=== PATIENT | female | born 1955 | race Caucasian/White ===

== ENCOUNTER → 2016-10-29 | Outpatient (CLI) | payer BC ==
[2016-10-29 17:14] LABS: HEMATOCRIT 42.4 % (37-47); MEAN CELL VOLUME 92.8 fL (80-100); MEAN CORPUSCULAR HEMOGLOBIN 31.1 pg (25-34); MEAN CORPUSCULAR HGB CONC 33.5 g/dl (32-36); MEAN PLATELET VOLUME 11.4 fL (7.4-10.4); PLATELET COUNT 218 K/uL (130-400); RED BLOOD COUNT 4.57 M/uL (4.2-5.4)
[2016-10-29 17:26] LABS: ALT/SGPT 40 U/L (12-78); AST/SGOT 20 U/L (15-37); BLOOD UREA NITROGEN 30 mg/dl (7-18); BUN/CREATININE RATIO 30.4 (10-20); CALCIUM 8.9 mg/dl (8.5-10.1); CARBON DIOXIDE 24 mmol/L (21-32); CHLORIDE 108 mmol/L (98-107); CHOLESTEROL 170 mg/dl (0-200); GLUCOSE 100 mg/dl (70-99); POTASSIUM 3.8 mmol/L (3.5-5.1); SODIUM 143 mmol/L (136-145)
[2016-10-29 17:37] LABS: ALB/GLOB RATIO 1.3 (0.9-2); ALKALINE PHOSPHATASE 135 U/L (45-117); CHOLESTEROL/HDL RATIO 2.7; HDL CHOLESTEROL 64 mg/dl; LDL CHOLESTEROL CALCULATED 88 mg/dl; TRIGLYCERIDES 88 mg/dl (0-150); VERY LOW DENSITY LIPOPROT CALC 18 mg/dl
[2016-10-29 19:07] LABS: ESTIMATED AVERAGE GLUCOSE 126 mg/dl; HA1C FLAG Normal (Normal)
== END | disposition home or self-care (01) ==
LOC: C.LABBFT 10:18
PROVIDERS: ATTEND Internal Medicine
DX: R73.01 Impaired fasting glucose (principal); E78.00 Pure hypercholesterolemia, unspecified

== ENCOUNTER 2021-03-31 23:55 | Inpatient (IN) ==
[2021-04-01] MEDS ORDERED: SODIUM CHLORIDE 0.9% 1000ML 1,000 ML IV ONE ×4 (00:19→02:33)
[2021-04-01] MEDS ORDERED: ACETAMINOPHEN 1,000 MG/100 ML VIAL IV STA (00:19)
--- NOTE | 2021-04-01 00:22 | Emergency Department Note ---
Impression & Plan Septic shock, Lactic acidosis, Acute renal failure ED Provider Note Name: ALLEN LAUREN Age: 65 Sex: F Arrives Via: Walk-In Informant: Patient ED Provider: Wiley Clark MD Chief Complaint: Shortness of breath Impression: Septic Shock Lactic Acidosis Acute Renal Failure Medical Decision Makin yr old female with history GERD & HLP, otherwise healthy without recent issues arrives with 3 to 4 days of feeling ill, primarily with feeling short of breath and weak. On arrival evaluated immediately on nursing concern and septic alert called. She is dehydrated, tachy, febrile, and quite ill appearing. Lungs with mild crackles throughout though otherwise no wheezing. No evidence meningitis and her abdomen is soft/non-tender. Immediately 2 IVs ordered, 2 L NSS bolus, and broad labs obtained. CXR without clear findings of infection. Labs returning quite concerning with neutropenia, thrombocytopenia, significantly elevated lactate/procal/dimer, elevated Cr. She is clearly quite septic and with lactate as high this is consistent with shock (hypotension much later in stay further confirms). Broad abx ordered with 20mg/kg vanco in s etting of renal failure. Further IV fluids ordered as well as tolerated 2 L very well, and is in renal failure. Seems unlikely fulminant DIC given fibrinogen actually a bit elevated at this time. Dimer 19k likely septic shock related and PE less likely given many other lab findings and exam leading to sepsis as primary diagnosis. With tenuous kidneys I do not feel that given IV contrast would be in patient's interest. Empiric full anticoagulation not advised as I do not feel this is PE nor ACS (again, trop likely sepsis related). Unclear etiology of sepsis, though with respiratory complaint felt that primary tx of this indicated. Second Lactate did come back improved yet still elevated (done after 2nd L completed), thus requested again nursing start already ordered 3rd L NSS. Patient did have some hypotension several hours after arrival at which point further IV fluids started. Patient however with no complaints nor discomfort. BP still trending down even after 4th L IV fluids, thus despite no symptoms, I did start Levophed with improvement. Hospitalist aware and will admit to ICU for management/monitoring. Eventually got UA after posadas placed by Nursing which reveals concern for UTI, abx already should cover this. Hospitalist will get CT c/a/p while she is en route to floor which given benign abdomen on several exams and breathing much better seems reasonable. My empiric read of CT concerning for obstructing proximal ureteral stone. In setting of dirty urine and septic shock concern for infected stone high, despite patient reiterating she had no abdominal nor flank pain throughout stay. I contacted hospitalist to make them aware of my concerns. Given the patients BMI >30, IBW was used to calculate the 30ml/kg fluid bolus, and then received further fluids given repetitive examinations. Prior Medical Record and Triage/Nursing Notes reviewed by Me Additional history obtained from chart/ Differentials:Viral syndrome, otitis, pharyngitis, pneumonia, influenza, meningitis, urinary tract infection, sepsis, bacteremia, as well as other pathologies. Vital Signs: reviewed and remarkable for febrile, tachy Interventions: saline lock, NSS bolus 2 L IV, 1L IV, 1L IV, zosyn IV, vanco IV, tylenol iv Labs:Reviewed and remarkable for extensive abnormalities. Neutropenia/thrombocytopenia. Elevated lactate, procal, dimer, cr. Imaging:X ray results are stated below per my interpretation: Chest: 1 view: No infiltrate, no effusion, normal cardiac border. EKG:Per My Interpretation: Indication Sepsis: Sinus tach 11 bpm, qtc 449. No Ectopy. No Ischemia. Compared to EKG 08/16/11, no significant changes other than rate increased Cardiac/Tele Monitoring: Cardiac Monitoring: An Order was placed for continuous cardiac monitoring. The monitor shows a rate of 110 with a sinus tachy rhythm. Consults:Dr Jesus BRITT Hospitalist Plan: Disposition:Hospitalization. Condition: Fair History of Present Illness:65 yr old female arrives for evaluation of shortness of breath. Patient notes rapidly worsening cough and shortness of breath over the last few days. Started with mild cough which has progressed. Associated productive cough, weakness, fatigue, and fevers. Notes some mild sciatic pain w ithout weakness nor loss bowel/bladder control. She denies significant headache, neck pain, abdominal pain, back pain, rashes, nor other symptoms. Notes some mild swelling in feet the last few weeks as well. No medications prior to arrival. Exertion makes worse, rest makes better. No history of respiratory issues. Remote history smoking. No history PE/DVT nor recent travel. Patient received both covid vaccine doses > than 1 month since last vaccine. ROS: See above HPI for pertinent positives & negatives. A total of 10 systems reviewed and were otherwise negative. Past Medical History:GERD, HLP Past Surgical History:Hysterectomy Family History:Unknown to patient Social History:Lives with , retired, quit smoking 20 yrs ago Home Medications:ASA 81mg daily, Atorvastatin 20mg daily Allergies:Hydrocodone Vitals:Blood Pressure: 152/70, Pulse 130, RR 30, T 38.1C, O2 94% on RA Physical Exam: GENERAL: Patient is ill/septic appearing and in moderate distress. Dehydrated EYES: No scleral icterus, unremarkable pupils. ENT: Mucous membranes dry+++, no nasal congestion. NECK: No masses appreciated, nomeningismus, trachea is midline. RESPIRATORY: Significant dyspnea/tachypnea with mild crackles throughout without significant wheeze appreciated on arrival. CARDIOVASCULAR: tachy.No murmurs, rubs, gallops appreciated. GASTROINTESTINAL: Abdomen soft, non-tender, no peritonitis.Bowel sounds positive.No masses appreciated. BACK: No midline tenderness, no CVA tenderness EXTREMITIES: Normal motion all extremities, no cyanosis, no edema. NEUROLOGIC: Alert and oriented, no acute motor or sensory deficits, no focal weakness, cranial nerves grossly intact. SKIN: No rash, no jaundice, no diaphoresis. PSYCH: Appropriate GCS: 15 ED Course: Times/Reassessments: many times throughout, each time patient stating she feels much better and no distress. Critical Care: I have personally spent 35 minutes of critical care time in the direct management of this patient. Acute Septic Shock. This was a life/limb threatening event. This 35 minutes is in excess of all separately billable procedures. Wiley Clark MD Past Med/Surg History Medical History Acute bronchitis with bronchospasm Biliary dyskinesia Gastroesophageal reflux disease Hypercholesteremia Hyperlipidemia Impaired fasting glucose Kidney stones Surgical History History of cholecystectomy History of esophagogastroduodenoscopy (EGD) History of hysterectomy Hx of cataract surgery Family History Mother Diabetes Sister Cancer Denies family history of Ovarian cancer Prostate cancer Myocardial infarction Breast cancer Colorectal cancer Social History Smoking Status: Former smoker Tobacco Type: Cigarettes Age Started Using Tobacco: 14; Age Quit Using Tobacco: 45; packs per day: 0.75; Smoking End Date: 20 yrs ago; Second Hand Exposure: No; Hx Alcohol Use: Yes Alcohol type: other Alcohol Intake Frequency: 2-4 x/Month Hx Substance Use: No Preferred Language: [place] Leonean Communication Ability: Effective Visual Impairment: No Limitations Hearing Ability: Hard of Hearing Front Desk Associate Required: No Beliefs That Will Affect Care: None marital status: Current Living Situation: Spouse current occupational status: retired 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 [employer] Other Information That Helps Us Care for You: No Feels Safe at Home: Yes Safety Concerns: Feels Safe At This Time Childhood Exposure to Second-Hand Smoke: No Dental Care, Regularly: No Physical Activity Frequency: Does not Exercise Seatbelt Use: always Sunscreen Use: No Assistive Devices: Denture - Upper and Denture - Lower Allergies Allergies Allergy/AdvReac Type Severity Reaction Status Date / Time hydrocodone Allergy Unknown Rash Verified 04/01/21 00:42 Home Meds Home Medications Medication Instructions Recorded Confirmed aspirin 81 mg PO DAILY 05/25/19 04/01/21 Previous Rx's Medication Instructions Recorded atorvastatin 20 mg tablet 20 mg PO HS #90 tab 11/10/20 Results & Data (ED) Vital Signs Vital Signs - 24 hr 04/01/21 00:01 04/01/21 00:04 04/01/21 01:13 Temperature 38.1 C H 38.5 C H Temperature Source Temporal Artery Scan Oral Pulse Rate 130 H Pulse Rate from SpO2 Sensor Respiratory Rate 30 H Respiratory Effort / Characteristics Short of Breath Accessory Muscle Use Labored Respiratory Depth Deep Respiratory Pattern Regular Blood Pressure 152/70 H Blood Pressure Mean 97 Pulse Oximetry 94 Oxygen Delivery Method Room Air Nasal Cannula Oxygen Flow Rate 4 Sepsis Recent Fever Within 48 Hours Yes Sepsis New/Unexplained Change in Mental Status Yes Sepsis Action Taken by Nursing Physician Notified 04/01/21 02:00 04/01/21 02:06 04/01/21 02:12 Temperature Temperature Source Pulse Rate 113 H 111 H 109 H Pulse Rate from SpO2 Sensor 113 H 111 H 109 H Respiratory Rate 31 H 30 H 30 H Respiratory Effort / Characteristics Respiratory Depth Respiratory Pattern Blood Pressure 103/63 Blood Pressure Mean 76 Pulse Oximetry 95 96 95 Oxygen Delivery Method Nasal Cannula Oxygen Flow Rate 2 Sepsis Recent Fever Within 48 Hours Sepsis New/Unexplained Change in Mental Status Sepsis Action Taken by Nursing 04/01/21 02:13 04/01/21 02:14 04/01/21 02:15 Temperature Temperature Source Pulse Rate 80 110 H 109 H Pulse Rate from SpO2 Sensor 81 110 H 109 H Respiratory Rate 24 24 29 H Respiratory Effort / Characteristics Respiratory Depth Respiratory Pattern Blood Pressure Blood Pressure Mean Pulse Oximetry 95 95 95 Oxygen Delivery Method Oxygen Flow Rate Sepsis Recent Fever Within 48 Hours Sepsis New/Unexplained Change in Mental Status Sepsis Action Taken by Nursing 04/01/21 02:16 04/01/21 02:17 04/01/21 02:18 Temperature Temperature Source Pulse Rate 110 H 111 H 109 H Pulse Rate from SpO2 Sensor 110 H 112 H 110 H Respiratory Rate 33 H 39 H 35 H Respiratory Effort / Characteristics Respiratory Depth Respiratory Pattern Blood Pressure Blood Pressure Mean Pulse Oximetry 95 95 95 Oxygen Delivery Method Oxygen Flow Rate Sepsis Recent Fever Within 48 Hours Sepsis New/Unexplained Change in Mental Status Sepsis Action Taken by Nursing 04/01/21 02:19 Temperature Temperature Source Pulse Rate 110 H Pulse Rate from SpO2 Sensor 110 H Respiratory Rate 27 H Respiratory Effort / Characteristics Respiratory Depth Respiratory Pattern Blood Pressure Blood Pressure Mean Pulse Oximetry 95 Oxygen Delivery Method Oxygen Flow Rate Sepsis Recent Fever Within 48 Hours Sepsis New/Unexplained Change in Mental Status Sepsis Action Taken by Nursing Laboratory Data Result diagrams: 04/01/21 00:23 04/01/21 00:23 Lab Results 04/01/21 04/01/21 04/01/21 Range/Units 00:23 00:23 00:23 WBC 2.11 L (4.8-10.8) K/uL RBC 4.11 L (4.2-5.4) M/uL Hgb 12.8 (12.0-16.0) g/dL Hct 38.1 (37-47) % MCV 92.7 (80-100) fL MCH 31.1 (25-34) pg MCHC 33.6 (32-36) g/dL RDW Std Deviation 49.8 H (36.4-46.3) fL RDW Coeff of Vannessa 14.7 H (11.5-14.5) % Plt Count 90 L (130-400) K/uL MPV 10.8 H (7.4-10.4) fL Neutrophils % (Manual) 71.3 % Lymphocytes % (Manual) 16.1 % Metamyelocytes % (Man) 6.3 % Myelocytes % (Man) 6.3 % Neutrophils # (Manual) 1.50 (1.4-6.5) K/uL Total Absolute Neuts 1.50 (1.4-6.5) K/uL Lymphocytes # (Manual) 0.34 L (1.2-3.4) K/uL Total Abs Lymphocytes 0.34 L (1.2-3.4) K/uL Metamyelocytes # (Man) 0.13 H (0-0) K/uL Myelocytes # (Manual) 0.13 H (0-0) K/uL Toxic Vacuolation 3+ Dohle Bodies 3+ Platelet Estimate Decreased L (Normal) Giant Platelets 2+ Echinocytes 2+ PT (9.0-12.0) Seconds INR (0.9-1.1) APTT (21.0-31.0) Seconds PTT Ratio Fibrinogen (184-400) mg/dl D-Dimer (0-500) ug/L FEU ABG pH (7.35-7.45) ABG pCO2 (35-46) mmHg ABG pO2 (80-95) mmHg ABG HCO3 (19-24) mmol/L ABG O2 Saturation (90-95) % ABG Base Excess (-9-1.8) mEq/L Pio Test (Pos) VBG pH (7.36-7.41) VBG pCO2 (38-50) mmHg VBG pO2 mmHg VBG HCO3 mmol/L VBG O2 Saturation % VBG Base Excess mEq/L Barometric Pressure mm/Hg Oxygen Given Sodium 136 (136-145) mmol/L Potassium 4.0 (3.5-5.1) mmol/L Chloride 103 (98-107) mmol/L Carbon Dioxide 13 L (21-32) mmol/L Anion Gap 20.0 H (3-11) BUN 44 H (7-18) mg/dl Creatinine 3.80 H (0.6-1.2) mg/dl Est Cr Clr Drug Dosing Not Reportable Est GFR ( Amer) 13.4 ml/min Est GFR (Non-Af Amer) 11.6 ml/min BUN/Creatinine Ratio 11.6 (10-20) Glucose 119 H (70-99) mg/dl Lactate 9.1 H* (0.4-2.0) mmol/L Calcium 8.2 L (8.5-10.1) mg/dl Magnesium 1.5 L (1.8-2.4) mg/dl Total Bilirubin 2.2 H (0.2-1) mg/dl Direct Bilirubin 1.0 H (0-0.2) mg/dl AST 73 H (15-37) U/L ALT 85 H (12-78) U/L Alkaline Phosphatase 228 H (45-117) U/L Troponin I 1.100 H* (0-0.045) ng/ml Total Protein 6.4 (6.4-8.2) gm/dl Albumin 2.9 L (3.4-5.0) gm/dl Lipase 45 L (73-393) U/L Procalcitonin (0-0.5) ng/ml Anaplasma Smear See Comment Lyme Disease IgG Ab (Negative) Lyme Disease IgM Ab (Negative) COVID-19 Eval Order SARS-CoV-2 (PCR) (Negative) 04/01/21 04/01/21 04/01/21 Range/Units 00:23 00:23 00:23 WBC (4.8-10.8) K/uL RBC (4.2-5.4) M/uL Hgb (12.0-16.0) g/dL Hct (37-47) % MCV (80-100) fL MCH (25-34) pg MCHC (32-36) g/dL RDW Std Deviation (36.4-46.3) fL RDW Coeff of Vannessa (11.5-14.5) % Plt Count (130-400) K/uL MPV (7.4-10.4) fL Neutrophils % (Manual) % Lymphocytes % (Manual) % Metamyelocytes % (Man) % Myelocytes % (Man) % Neutrophils # (Manual) (1.4-6.5) K/uL Total Absolute Neuts (1.4-6.5) K/uL Lymphocytes # (Manual) (1.2-3.4) K/uL Total Abs Lymphocytes (1.2-3.4) K/uL Metamyelocytes # (Man) (0-0) K/uL Myelocytes # (Manual) (0-0) K/uL Toxic Vacuolation Dohle Bodies Platelet Estimate (Normal) Giant Platelets Echinocytes PT (9.0-12.0) Seconds INR (0.9-1.1) APTT (21.0-31.0) Seconds PTT Ratio Fibrinogen (184-400) mg/dl D-Dimer 06181 H* (0-500) ug/L FEU ABG pH (7.35-7.45) ABG pCO2 (35-46) mmHg ABG pO2 (80-95) mmHg ABG HCO3 (19-24) mmol/L ABG O2 Saturation (90-95) % ABG Base Excess (-9-1.8) mEq/L Pio Test (Pos) VBG pH 7.37 (7.36-7.41) VBG pCO2 25 L (38-50) mmHg VBG pO2 40 mmHg VBG HCO3 14 mmol/L VBG O2 Saturation 75.9 % VBG Base Excess -9.4 mEq/L Barometric Pressure 730.2 mm/Hg Oxygen Given Sodium (136-145) mmol/L Potassium (3.5-5.1) mmol/L Chloride (98-107) mmol/L Carbon Dioxide (21-32) mmol/L Anion Gap (3-11) BUN (7-18) mg/dl Creatinine (0.6-1.2) mg/dl Est Cr Clr Drug Dosing Est GFR ( Amer) ml/min Est GFR (Non-Af Amer) ml/min BUN/Creatinine Ratio (10-20) Glucose (70-99) mg/dl Lactate (0.4-2.0) mmol/L Calcium (8.5-10.1) mg/dl Magnesium (1.8-2.4) mg/dl Total Bilirubin (0.2-1) mg/dl Direct Bilirubin (0-0.2) mg/dl AST (15-37) U/L ALT (12-78) U/L Alkaline Phosphatase (45-117) U/L Troponin I (0-0.045) ng/ml Total Protein (6.4-8.2) gm/dl Albumin (3.4-5.0) gm/dl Lipase (73-393) U/L Procalcitonin 97.52 H (0-0.5) ng/ml Anaplasma Smear Lyme Disease IgG Ab (Negative) Lyme Disease IgM Ab (Negative) COVID-19 Eval Order SARS-CoV-2 (PCR) (Negative) 04/01/21 04/01/21 04/01/21 Range/Units 00:23 00:23 00:30 WBC (4.8-10.8) K/uL RBC (4.2-5.4) M/uL Hgb (12.0-16.0) g/dL Hct (37-47) % MCV (80-100) fL MCH (25-34) pg MCHC (32-36) g/dL RDW Std Deviation (36.4-46.3) fL RDW Coeff of Vannessa (11.5-14.5) % Plt Count (130-400) K/uL MPV (7.4-10.4) fL Neutrophils % (Manual) % Lymphocytes % (Manual) % Metamyelocytes % (Man) % Myelocytes % (Man) % Neutrophils # (Manual) (1.4-6.5) K/uL Total Absolute Neuts (1.4-6.5) K/uL Lymphocytes # (Manual) (1.2-3.4) K/uL Total Abs Lymphocytes (1.2-3.4) K/uL Metamyelocytes # (Man) (0-0) K/uL Myelocytes # (Manual) (0-0) K/uL Toxic Vacuolation Dohle Bodies Platelet Estimate (Normal) Giant Platelets Echinocytes PT 12.9 H (9.0-12.0) Seconds INR 1.3 H (0.9-1.1) APTT 33.1 H (21.0-31.0) Seconds PTT Ratio 1.3 Fibrinogen 545 H (184-400) mg/dl D-Dimer (0-500) ug/L FEU ABG pH (7.35-7.45) ABG pCO2 (35-46) mmHg ABG pO2 (80-95) mmHg ABG HCO3 (19-24) mmol/L ABG O2 Saturation (90-95) % ABG Base Excess (-9-1.8) mEq/L Poi Test (Pos) VBG pH (7.36-7.41) VBG pCO2 (38-50) mmHg VBG pO2 mmHg VBG HCO3 mmol/L VBG O2 Saturation % VBG Base Excess mEq/L Barometric Pressure mm/Hg Oxygen Given Sodium (136-145) mmol/L Potassium (3.5-5.1) mmol/L Chloride (98-107) mmol/L Carbon Dioxide (21-32) mmol/L Anion Gap (3-11) BUN (7-18) mg/dl Creatinine (0.6-1.2) mg/dl Est Cr Clr Drug Dosing Est GFR ( Amer) ml/min Est GFR (Non-Af Amer) ml/min BUN/Creatinine Ratio (10-20) Glucose (70-99) mg/dl Lactate (0.4-2.0) mmol/L Calcium (8.5-10.1) mg/dl Magnesium (1.8-2.4) mg/dl Total Bilirubin (0.2-1) mg/dl Direct Bilirubin (0-0.2) mg/dl AST (15-37) U/L ALT (12-78) U/L Alkaline Phosphatase (45-117) U/L Troponin I (0-0.045) ng/ml Total Protein (6.4-8.2) gm/dl Albumin (3.4-5.0) gm/dl Lipase (73-393) U/L Procalcitonin (0-0.5) ng/ml Anaplasma Smear Lyme Disease IgG Ab Negative (Negative) Lyme Disease IgM Ab Negative (Negative) COVID-19 Eval Order Covid19 at [facility] SARS-CoV-2 (PCR) (Negative) 04/01/21 04/01/21 04/01/21 Range/Units 00:30 01:35 01:36 WBC (4.8-10.8) K/uL RBC (4.2-5.4) M/uL Hgb (12.0-16.0) g/dL Hct (37-47) % MCV (80-100) fL MCH (25-34) pg MCHC (32-36) g/dL RDW Std Deviation (36.4-46.3) fL RDW Coeff of Vannessa (11.5-14.5) % Plt Count (130-400) K/uL MPV (7.4-10.4) fL Neutrophils % (Manual) % Lymphocytes % (Manual) % Metamyelocytes % (Man) % Myelocytes % (Man) % Neutrophils # (Manual) (1.4-6.5) K/uL Total Absolute Neuts (1.4-6.5) K/uL Lymphocytes # (Manual) (1.2-3.4) K/uL Total Abs Lymphocytes (1.2-3.4) K/uL Metamyelocytes # (Man) (0-0) K/uL Myelocytes # (Manual) (0-0) K/uL Toxic Vacuolation Dohle Bodies Platelet Estimate (Normal) Giant Platelets Echinocytes PT (9.0-12.0) Seconds INR (0.9-1.1) APTT (21.0-31.0) Seconds PTT Ratio Fibrinogen (184-400) mg/dl D-Dimer (0-500) ug/L FEU ABG pH 7.45 (7.35-7.45) ABG pCO2 23 L (35-46) mmHg ABG pO2 98 H (80-95) mmHg ABG HCO3 16 L (19-24) mmol/L ABG O2 Saturation 98.0 H (90-95) % ABG Base Excess -6.7 (-9-1.8) mEq/L Pio Test POS (Pos) VBG pH (7.36-7.41) VBG pCO2 (38-50) mmHg VBG pO2 mmHg VBG HCO3 mmol/L VBG O2 Saturation % VBG Base Excess mEq/L Barometric Pressure 729.2 mm/Hg Oxygen Given ROOM AIR Sodium (136-145) mmol/L Potassium (3.5-5.1) mmol/L Chloride (98-107) mmol/L Carbon Dioxide (21-32) mmol/L Anion Gap (3-11) BUN (7-18) mg/dl Creatinine (0.6-1.2) mg/dl Est Cr Clr Drug Dosing Est GFR ( Amer) ml/min Est GFR (Non-Af Amer) ml/min BUN/Creatinine Ratio (10-20) Glucose (70-99) mg/dl Lactate 4.8 H* (0.4-2.0) mmol/L Calcium (8.5-10.1) mg/dl Magnesium (1.8-2.4) mg/dl Total Bilirubin (0.2-1) mg/dl Direct Bilirubin (0-0.2) mg/dl AST (15-37) U/L ALT (12-78) U/L Alkaline Phosphatase (45-117) U/L Troponin I (0-0.045) ng/ml Total Protein (6.4-8.2) gm/dl Albumin (3.4-5.0) gm/dl Lipase (73-393) U/L Procalcitonin (0-0.5) ng/ml Anaplasma Smear Lyme Disease IgG Ab (Negative) Lyme Disease IgM Ab (Negative) COVID-19 Eval Order SARS-CoV-2 (PCR) NEGATIVE (Negative) Administered Medications Heparin Sodium (Porcine) (Heparin Sod 5,000 Unit/0.5 Ml Vial) 5,000 units SQ Q8 DAVIE Stop: 05/01/21 05:59 Last Admin: 04/01/21 06:19 Dose: 5,000 units Documented by: [id number] Norepinephrine Bitartrate (Levophed/D5w) 8 mg in 508 mls @ 20.174 mls/hr IV .Q24H DAVIE; Protocol Stop: 05/01/21 03:14 Last Titration: 04/01/21 07:05 Dose: 0.09 mcg/kg/min, 36.3 mls/hr Documented by: [id number] Cosigned by: [id number] Titration: 04/01/21 05:00 Dose: 0.09 mcg/kg/min, 36.3 mls/hr Documented by: [id number] Titration: 04/01/21 04:00 Dose: 0.07 mcg/kg/min, 28.2 mls/hr Documented by: [id number] Admin: 04/01/21 03:19 Dose: 0.05 mcg/kg/min, 20.2 mls/hr Documented by: [id number] Cosigned by: [id number] Sodium Chloride (Nss 1000ml) 1,000 mls @ 100 mls/hr IV .Q10H DAVIE Stop: 05/01/21 04:55 Last Admin: 04/01/21 05:18 Dose: 100 mls/hr Documented by: [id number] Discontinued Medications Sodium Chloride (Nss 1000ml) 1,000 mls @ 999 mls/hr IV .Q1H1M ONE Stop: 04/01/21 01:19 Last Infusion: 04/01/21 01:11 Dose: 0 mls/hr Documented by: [id number] Admin: 04/01/21 00:10 Dose: 999 mls/hr Documented by: [id number] Sodium Chloride (Nss 1000ml) 1,000 mls @ 999 mls/hr IV .Q1H1M ONE Stop: 04/01/21 01:19 Last Infusion: 04/01/21 01:20 Dose: 0 mls/hr Documented by: [id number] Admin: 04/01/21 00:10 Dose: 999 mls/hr Documented by: [id number] Acetaminophen (Ofirmev) 1,000 mg in 100 mls @ 400 mls/hr IV NOW STA Stop: 04/01/21 00:33 Last Infusion: 04/01/21 01:25 Dose: 0 mls/hr Documented by: [id number] Admin: 04/01/21 01:10 Dose: 400 mls/hr Documented by: [id number] Piperacillin Sod/Tazobactam Sod (Zosyn) 4.5 gm in 120 mls @ 240 mls/hr IV NOW ONE Stop: 04/01/21 01:35 Last Infusion: 04/01/21 02:00 Dose: 0 mls/hr Documented by: [id number] Admin: 04/01/21 01:33 Dose: 240 mls/hr Documented by: [id number] Vancomycin HCl 1,250 mg/ (Sodium Chloride) 525 mls @ 200 mls/hr IV NOW ONE Stop: 04/01/21 03:43 Last Admin: 04/01/21 06:04 Dose: Not Given Documented by: [id number] Sodium Chloride (Nss 1000ml) 1,000 mls @ 999 mls/hr IV .Q1H1M ONE Stop: 04/01/21 02:29 Last Infusion: 04/01/21 02:40 Dose: 0 mls/hr Documented by: [id number] Admin: 04/01/21 01:30 Dose: 999 mls/hr Documented by: [id number] Sodium Chloride (Nss 1000ml) 1,000 mls @ 999 mls/hr IV .Q1H1M ONE Stop: 04/01/21 03:33 Last Infusion: 04/01/21 03:43 Dose: 0 mls/hr Documented by: [id number] Admin: 04/01/21 02:42 Dose: 999 mls/hr Documented by: [id number] Miscellaneous (Stat Iv Infusion Titration Per Protocol) 1 ea N/A NOW STA Stop: 04/01/21 03:09 Last Admin: 04/01/21 05:18 Dose: 1 ea Documented by: [id number] Discharge Plan Visit Data Chief Complaint: Shortness of Breath/Dyspnea Stated Complaint: SOB,HOT/COLD,LEG/BACK PAIN ED Provider: Wiley Clark Discharge Problem: Septic shock, Lactic acidosis, Acute renal failure Patient Disposition: Admitted As Inpatient Discharge Instructions Interventions: ED Discharge Assessment Last Done: 04/01/21 05:06 Discharge Problem: Acute renal failure Qualifiers: Acute renal failure type: unspecified Qualified Code(s): N17.9 - Acute kidney failure, unspecified
[2021-04-01 00:47] LABS: Base Excess VBG -9.4 mEq/L; Oxygen Saturation VBG 75.9 %; pH VBG 7.37 (7.36-7.41)
[2021-04-01 00:52] LABS: Alanine Aminotransferase 85 U/L (12-78); Albumin Level 2.9 gm/dl (3.4-5.0); Aspartate Aminotransferase 73 U/L (15-37); BUN Creatinine Ratio 11.6 (10-20); Blood Urea Nitrogen 44 mg/dl (7-18); Calcium 8.2 mg/dl (8.5-10.1); Carbon Dioxide 13 mmol/L (21-32); Chloride 103 mmol/L (98-107); Est GFR (African American) 13.4 ml/min; Est GFR (Non-African American) 11.6 ml/min; Glucose 119 mg/dl (70-99); Lipase 45 U/L (73-393); Magnesium 1.5 mg/dl (1.8-2.4); Sodium 136 mmol/L (136-145)
[2021-04-01 01:05] LABS: Alkaline Phosphatase 228 U/L (45-117); Bilirubin,Total 2.2 mg/dl (0.2-1); Total Protein 6.4 gm/dl (6.4-8.2)
[2021-04-01] MEDS ORDERED: VANCOMYCIN HCL 1,250 MG in SODIUM CHLORIDE 0.9% 500 ML IV ONE (01:06)
[2021-04-01] MEDS ORDERED: VANCOMYCIN HCL 1,200 MG in SODIUM CHLORIDE 0.9% 500 ML IV ONE (01:06)
[2021-04-01] MEDS ORDERED: PIPERACILLIN/TAZOBACTAM 4.5 GM/120 ML BAG IV ONE (01:06)
[2021-04-01] MEDS ORDERED: VANCOMYCIN CONSULT ACTIVE PRN (01:06)
[2021-04-01] MEDS ORDERED: PIPERACILL/TAZOBAC CONSULT ACTIVE PRN (01:06)
[2021-04-01 01:09] LABS: Hematocrit (blood only) 38.1 % (37-47); Hemoglobin 12.8 g/dL (12.0-16.0); Mean Corpuscular Hemoglobin 31.1 pg (25-34); Mean Corpuscular Hgb Conc 33.6 g/dL (32-36); Mean Corpuscular Volume 92.7 fL (80-100); Mean Platelet Volume 10.8 fL (7.4-10.4); Platelet Count 90 K/uL (130-400); RDW Coefficient of Variation 14.7 % (11.5-14.5); RDW Standard Deviation 49.8 fL (36.4-46.3); Red Blood Count 4.11 M/uL (4.2-5.4); White Blood Count 2.11 K/uL (4.8-10.8)
[2021-04-01 01:11] LABS: D Dimer 19340 ug/L FEU (0-500)
[2021-04-01 01:12] LABS: ALC (manual) 0.34 K/uL (1.2-3.4); Dohle Bodies 3+; Echinocytes 2+; Giant Platelets 2+; Lymphocytes # (manual) 0.34 K/uL (1.2-3.4); Lymphocytes % (manual) 16.1 %; Metamyelocytes # (manual) 0.13 K/uL (0-0); Metamyelocytes % (manual) 6.3 %; Myelocytes # (manual) 0.13 K/uL (0-0); Myelocytes % (manual) 6.3 %; Neutrophils % (manual) 71.3 %; Platelet Estimate Decreased (Normal); Toxic Vacuolation 3+
[2021-04-01 01:52] LABS: Base Excess ABG -6.7 mEq/L (-9-1.8); HCO3 ABG 16 mmol/L (19-24); PCO2 ABG 23 mmHg (35-46); PO2 ABG 98 mmHg (80-95); pH ABG 7.45 (7.35-7.45)
[2021-04-01 01:53] LABS: Allen Test POS (Pos)
[2021-04-01 01:56] LABS: Lyme Ab IgG w/WB Rflx Negative (Negative); Lyme Ab IgM w/WB Rflx Negative (Negative)
[2021-04-01 01:59] LABS: Fibrinogen 545 mg/dl (184-400); INR 1.3 (0.9-1.1); Partial Thromboplastin Ratio 1.3; Partial Thromboplastin Time 33.1 Seconds (21.0-31.0); Prothrombin Time 12.9 Seconds (9.0-12.0)
--- NOTE | 2021-04-01 02:26 | History & Physical Report ---
Date of Service April 01, 2021 Assessment & Plan (1) Septic shock: Evon Flores is a 65y/o female with no significant past medical history; who presented to the ER for new onset concerns of shortness of breath started this past evening. Septic shock: -Differentiated source of infection -Lactate 9.5 on admission with subsequent downtrend to 4.8 following 3 L normal saline bolus -Pro-Skip 97.52, no elevated WBC, febrile on admission, with hypotension, tachypnea, and tachycardia -Initiated on Vanco and Zosyn in ED -Discontinued Vanco in the setting of acute renal failure and negative nasal MRSA -Continue Zosyn [place] [address] -CT chest pending -CT abdomen pelvis pending -Given continued hypotension admitted to ICU for continued monitoring -Levophed started in ED -Covid negative (additionally completed 2 doses Covid vaccination) -Blood and urine cultures sent Acute liver injury: -INR 1.3, PT PTT elevated -Mildly elevated AST ALT and alk phos from normal -CT abdomen pelvis pending -Likely secondary to dehydration Elevated troponin: -1.100 on admission -Nonspecific ST abnormalities noted on EKG with no old EKG for reference -Continue to monitor q8h Acute renal failure: -Likely secondary to dehydration -Cr 3.8 on admission (baseline apparently 1.0) -Continue IV fluids for rehydration -Continue to monitor daily Diet: regular CODE STATUS: Full code DVT ppx: Heparin SQ (2) Acute renal failure: (3) Lactic acidosis: History of Present Illness Primary Care Provider: Manjinder Combs MD Evon Flores is a 65y/o female with no significant past medical history; who presented to the ER for new onset concerns of shortness of breath started this past evening. (She felt like she been in her usual state of health, with the exception of on Tuesday she had decreased appetite and decreased interest in drinking fluids. States that she typically drinks, between 60 to 70 ounces of fluid a day; however, on Tuesday as she just was not feeling up to eating or drinking she had +, this was continued up until Tuesday evening in which she had half a cup of Gatorade. Otherwise feels well feels like she has no acute concerns. States that she feels like her shortness of breath has improved following being started on oxygen in the ED. Additionally notes that sometime during the day Tuesday she started to notice that she was feeling chills, sweats; however had no nausea, vomiting, changes in bowel movements, chest palpitations, chest pain, loss of consciousness, or forgetfulness. Allergies Allergy/AdvReac Type Severity Reaction Status Date / Time hydrocodone Allergy Unknown Rash Verified 04/01/21 00:42 Home Medications Medication Instructions Recorded Confirmed Type aspirin 81 mg PO DAILY 05/25/19 04/01/21 History atorvastatin 20 mg tablet 20 mg PO HS #90 tab 11/10/20 04/01/21 Rx Past Med/Surg History Medical History Acute bronchitis with bronchospasm Biliary dyskinesia Gastroesophageal reflux disease Hypercholesteremia Hyperlipidemia Impaired fasting glucose Kidney stones Surgical History History of cholecystectomy History of esophagogastroduodenoscopy (EGD) History of hysterectomy Hx of cataract surgery LEFT Family History Mother Diabetes Sister Cancer Denies family history of Ovarian cancer Prostate cancer Myocardial infarction Breast cancer Colorectal cancer Social History Smoking Status: Former smoker Tobacco Type: Cigarettes Age Started Using Tobacco: 14; Age Quit Using Tobacco: 45; packs per day: 0.75; Smoking End Date: 20 yrs ago; Second Hand Exposure: No; Hx Alcohol Use: Yes Alcohol type: other Alcohol Intake Frequency: 2-4 x/Month Hx Substance Use: No Preferred Language: German Communication Ability: Effective Visual Impairment: No Limitations Hearing Ability: Hard of Hearing Metrology Specialist Required: No Beliefs That Will Affect Care: None marital status: Current Living Situation: Spouse current occupational status: retired 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 [employer] Other Information That Helps Us Care for You: No Feels Safe at Home: Yes Safety Concerns: Feels Safe At This Time Childhood Exposure to Second-Hand Smoke: No Dental Care, Regularly: No Physical Activity Frequency: Does not Exercise Seatbelt Use: always Sunscreen Use: No Assistive Devices: Denture - Upper, Denture - Lower and Oxygen - Continuous Review of Systems Review of Systems: All systems reviewed & are unremarkable except as noted in HPI & below Physical Exam Constitutional: WD/WN, vitals as above Eyes: PERRL, conjunctivae normal, anicteric sclerae Respiratory: normal respiratory effort; no respiratory distress, no labored breathing, no retractions and does not use accessory muscles Auscultation: + rhonchi (R>L); no crackles, no rales and no wheezes Cardiovascular: Rate/Rhythm: regular rate and regular rhythm Heart Sounds: no gallop, no murmur and no cardiac rub Vessels: normal peripheral pulses; no JVD Extremities: no edema Gastrointestinal (Abdomen): Inspection/Auscultation: normal bowel sounds; abdomen not distended Percussion/Palpation: abdomen soft and normal to percussion; abdomen nontender and no guarding Musculoskeletal: no cyanosis or clubbing, extremities motor strength 5/5 Skin: + turgor decreased Neurologic: deep tendon reflexes 2+ bilaterally, moves all extremities and awake; not confused and not obtunded Cranial Nerves: PERRL, normal accommodation, EOM intact bilaterally, normal facial strength, tongue midline, normal hearing, able to rotate head bilaterally, able to elevate shoulders bilaterally, no nystagmus and symmetric palate elevation Psychiatric: Orientation: alert and oriented x 3 Lymphatic: no cervical lymphadenopathy Results & Data Results & Data ([facility]) Vital Signs (Past 12 Hours) Vital Signs Temp Pulse Resp BP Pulse Ox 04/01/21 01:13 38.5 C H 04/01/21 00:01 38.1 C H 130 H 30 H 152/70 H 94 Laboratory Results 04/01/21 04/01/21 04/01/21 Range/Units 02:43 01:36 01:35 WBC (4.8-10.8) K/uL RBC (4.2-5.4) M/uL Hgb (12.0-16.0) g/dL Hct (37-47) % MCV (80-100) fL MCH (25-34) pg MCHC (32-36) g/dL RDW Std Deviation (36.4-46.3) fL RDW Coeff of Vannessa (11.5-14.5) % Plt Count (130-400) K/uL MPV (7.4-10.4) fL Neutrophils % (Manual) % Lymphocytes % (Manual) % Metamyelocytes % (Man) % Myelocytes % (Man) % Neutrophils # (Manual) (1.4-6.5) K/uL Total Absolute Neuts (1.4-6.5) K/uL Lymphocytes # (Manual) (1.2-3.4) K/uL Total Abs Lymphocytes (1.2-3.4) K/uL Metamyelocytes # (Man) (0-0) K/uL Myelocytes # (Manual) (0-0) K/uL Toxic Vacuolation Dohle Bodies Platelet Estimate (Normal) Giant Platelets Echinocytes PT (9.0-12.0) Seconds INR (0.9-1.1) APTT (21.0-31.0) Seconds PTT Ratio Fibrinogen (184-400) mg/dl D-Dimer (0-500) ug/L FEU ABG pH 7.45 (7.35-7.45) ABG pCO2 23 L (35-46) mmHg ABG pO2 98 H (80-95) mmHg ABG HCO3 16 L (19-24) mmol/L ABG O2 Saturation 98.0 H (90-95) % ABG Base Excess -6.7 (-9-1.8) mEq/L Pio Test POS (Pos) VBG pH (7.36-7.41) VBG pCO2 (38-50) mmHg VBG pO2 mmHg VBG HCO3 mmol/L VBG O2 Saturation % VBG Base Excess mEq/L Barometric Pressure 729.2 mm/Hg Oxygen Given ROOM AIR Sodium (136-145) mmol/L Potassium (3.5-5.1) mmol/L Chloride (98-107) mmol/L Carbon Dioxide (21-32) mmol/L Anion Gap (3-11) BUN (7-18) mg/dl Creatinine (0.6-1.2) mg/dl Est Cr Clr Drug Dosing Est GFR ( Amer) ml/min Est GFR (Non-Af Amer) ml/min BUN/Creatinine Ratio (10-20) Glucose (70-99) mg/dl Lactate 4.8 H* (0.4-2.0) mmol/L Calcium (8.5-10.1) mg/dl Magnesium (1.8-2.4) mg/dl Total Bilirubin (0.2-1) mg/dl Direct Bilirubin (0-0.2) mg/dl AST (15-37) U/L ALT (12-78) U/L Alkaline Phosphatase (45-117) U/L Troponin I (0-0.045) ng/ml Total Protein (6.4-8.2) gm/dl Albumin (3.4-5.0) gm/dl Lipase (73-393) U/L Procalcitonin (0-0.5) ng/ml Nasal Screen MRSA (PCR) Pending Anaplasma Smear A. phagocytophilum DNA Lyme Disease IgG Ab (Negative) Lyme Disease IgM Ab (Negative) COVID-19 Eval Order SARS-CoV-2 (PCR) (Negative) 04/01/21 04/01/21 04/01/21 Range/Units 00:30 00:30 00:23 WBC (4.8-10.8) K/uL RBC (4.2-5.4) M/uL Hgb (12.0-16.0) g/dL Hct (37-47) % MCV (80-100) fL MCH (25-34) pg MCHC (32-36) g/dL RDW Std Deviation (36.4-46.3) fL RDW Coeff of Vannessa (11.5-14.5) % Plt Count (130-400) K/uL MPV (7.4-10.4) fL Neutrophils % (Manual) % Lymphocytes % (Manual) % Metamyelocytes % (Man) % Myelocytes % (Man) % Neutrophils # (Manual) (1.4-6.5) K/uL Total Absolute Neuts (1.4-6.5) K/uL Lymphocytes # (Manual) (1.2-3.4) K/uL Total Abs Lymphocytes (1.2-3.4) K/uL Metamyelocytes # (Man) (0-0) K/uL Myelocytes # (Manual) (0-0) K/uL Toxic Vacuolation Dohle Bodies Platelet Estimate (Normal) Giant Platelets Echinocytes PT (9.0-12.0) Seconds INR (0.9-1.1) APTT (21.0-31.0) Seconds PTT Ratio Fibrinogen (184-400) mg/dl D-Dimer (0-500) ug/L FEU ABG pH (7.35-7.45) ABG pCO2 (35-46) mmHg ABG pO2 (80-95) mmHg ABG HCO3 (19-24) mmol/L ABG O2 Saturation (90-95) % ABG Base Excess (-9-1.8) mEq/L Pio Test (Pos) VBG pH (7.36-7.41) VBG pCO2 (38-50) mmHg VBG pO2 mmHg VBG HCO3 mmol/L VBG O2 Saturation % VBG Base Excess mEq/L Barometric Pressure mm/Hg Oxygen Given Sodium (136-145) mmol/L Potassium (3.5-5.1) mmol/L Chloride (98-107) mmol/L Carbon Dioxide (21-32) mmol/L Anion Gap (3-11) BUN (7-18) mg/dl Creatinine (0.6-1.2) mg/dl Est Cr Clr Drug Dosing Est GFR ( Amer) ml/min Est GFR (Non-Af Amer) ml/min BUN/Creatinine Ratio (10-20) Glucose (70-99) mg/dl Lactate (0.4-2.0) mmol/L Calcium (8.5-10.1) mg/dl Magnesium (1.8-2.4) mg/dl Total Bilirubin (0.2-1) mg/dl Direct Bilirubin (0-0.2) mg/dl AST (15-37) U/L ALT (12-78) U/L Alkaline Phosphatase (45-117) U/L Troponin I (0-0.045) ng/ml Total Protein (6.4-8.2) gm/dl Albumin (3.4-5.0) gm/dl Lipase (73-393) U/L Procalcitonin (0-0.5) ng/ml Nasal Screen MRSA (PCR) Anaplasma Smear A. phagocytophilum DNA Pending Lyme Disease IgG Ab (Negative) Lyme Disease IgM Ab (Negative) COVID-19 Eval Order Covid19 at [facility] SARS-CoV-2 (PCR) NEGATIVE (Negative) 04/01/21 04/01/21 04/01/21 Range/Units 00:23 00:23 00:23 WBC (4.8-10.8) K/uL RBC (4.2-5.4) M/uL Hgb (12.0-16.0) g/dL Hct (37-47) % MCV (80-100) fL MCH (25-34) pg MCHC (32-36) g/dL RDW Std Deviation (36.4-46.3) fL RDW Coeff of Vannessa (11.5-14.5) % Plt Count (130-400) K/uL MPV (7.4-10.4) fL Neutrophils % (Manual) % Lymphocytes % (Manual) % Metamyelocytes % (Man) % Myelocytes % (Man) % Neutrophils # (Manual) (1.4-6.5) K/uL Total Absolute Neuts (1.4-6.5) K/uL Lymphocytes # (Manual) (1.2-3.4) K/uL Total Abs Lymphocytes (1.2-3.4) K/uL Metamyelocytes # (Man) (0-0) K/uL Myelocytes # (Manual) (0-0) K/uL Toxic Vacuolation Dohle Bodies Platelet Estimate (Normal) Giant Platelets Echinocytes PT 12.9 H (9.0-12.0) Seconds INR 1.3 H (0.9-1.1) APTT 33.1 H (21.0-31.0) Seconds PTT Ratio 1.3 Fibrinogen 545 H (184-400) mg/dl D-Dimer (0-500) ug/L FEU ABG pH (7.35-7.45) ABG pCO2 (35-46) mmHg ABG pO2 (80-95) mmHg ABG HCO3 (19-24) mmol/L ABG O2 Saturation (90-95) % ABG Base Excess (-9-1.8) mEq/L Pio Test (Pos) VBG pH 7.37 (7.36-7.41) VBG pCO2 25 L (38-50) mmHg VBG pO2 40 mmHg VBG HCO3 14 mmol/L VBG O2 Saturation 75.9 % VBG Base Excess -9.4 mEq/L Barometric Pressure 730.2 mm/Hg Oxygen Given Sodium (136-145) mmol/L Potassium (3.5-5.1) mmol/L Chloride (98-107) mmol/L Carbon Dioxide (21-32) mmol/L Anion Gap (3-11) BUN (7-18) mg/dl Creatinine (0.6-1.2) mg/dl Est Cr Clr Drug Dosing Est GFR ( Amer) ml/min Est GFR (Non-Af Amer) ml/min BUN/Creatinine Ratio (10-20) Glucose (70-99) mg/dl Lactate (0.4-2.0) mmol/L Calcium (8.5-10.1) mg/dl Magnesium (1.8-2.4) mg/dl Total Bilirubin (0.2-1) mg/dl Direct Bilirubin (0-0.2) mg/dl AST (15-37) U/L ALT (12-78) U/L Alkaline Phosphatase (45-117) U/L Troponin I (0-0.045) ng/ml Total Protein (6.4-8.2) gm/dl Albumin (3.4-5.0) gm/dl Lipase (73-393) U/L Procalcitonin (0-0.5) ng/ml Nasal Screen MRSA (PCR) Anaplasma Smear A. phagocytophilum DNA Lyme Disease IgG Ab Negative (Negative) Lyme Disease IgM Ab Negative (Negative) COVID-19 Eval Order SARS-CoV-2 (PCR) (Negative) 04/01/21 04/01/21 04/01/21 Range/Units 00:23 00:23 00:23 WBC (4.8-10.8) K/uL RBC (4.2-5.4) M/uL Hgb (12.0-16.0) g/dL Hct (37-47) % MCV (80-100) fL MCH (25-34) pg MCHC (32-36) g/dL RDW Std Deviation (36.4-46.3) fL RDW Coeff of Vannessa (11.5-14.5) % Plt Count (130-400) K/uL MPV (7.4-10.4) fL Neutrophils % (Manual) % Lymphocytes % (Manual) % Metamyelocytes % (Man) % Myelocytes % (Man) % Neutrophils # (Manual) (1.4-6.5) K/uL Total Absolute Neuts (1.4-6.5) K/uL Lymphocytes # (Manual) (1.2-3.4) K/uL Total Abs Lymphocytes (1.2-3.4) K/uL Metamyelocytes # (Man) (0-0) K/uL Myelocytes # (Manual) (0-0) K/uL Toxic Vacuolation Dohle Bodies Platelet Estimate (Normal) Giant Platelets Echinocytes PT (9.0-12.0) Seconds INR (0.9-1.1) APTT (21.0-31.0) Seconds PTT Ratio Fibrinogen (184-400) mg/dl D-Dimer 54807 H* (0-500) ug/L FEU ABG pH (7.35-7.45) ABG pCO2 (35-46) mmHg ABG pO2 (80-95) mmHg ABG HCO3 (19-24) mmol/L ABG O2 Saturation (90-95) % ABG Base Excess (-9-1.8) mEq/L Pio Test (Pos) VBG pH (7.36-7.41) VBG pCO2 (38-50) mmHg VBG pO2 mmHg VBG HCO3 mmol/L VBG O2 Saturation % VBG Base Excess mEq/L Barometric Pressure mm/Hg Oxygen Given Sodium 136 (136-145) mmol/L Potassium 4.0 (3.5-5.1) mmol/L Chloride 103 (98-107) mmol/L Carbon Dioxide 13 L (21-32) mmol/L Anion Gap 20.0 H (3-11) BUN 44 H (7-18) mg/dl Creatinine 3.80 H (0.6-1.2) mg/dl Est Cr Clr Drug Dosing Not Reportable Est GFR ( Amer) 13.4 ml/min Est GFR (Non-Af Amer) 11.6 ml/min BUN/Creatinine Ratio 11.6 (10-20) Glucose 119 H (70-99) mg/dl Lactate (0.4-2.0) mmol/L Calcium 8.2 L (8.5-10.1) mg/dl Magnesium 1.5 L (1.8-2.4) mg/dl Total Bilirubin 2.2 H (0.2-1) mg/dl Direct Bilirubin 1.0 H (0-0.2) mg/dl AST 73 H (15-37) U/L ALT 85 H (12-78) U/L Alkaline Phosphatase 228 H (45-117) U/L Troponin I 1.100 H* (0-0.045) ng/ml Total Protein 6.4 (6.4-8.2) gm/dl Albumin 2.9 L (3.4-5.0) gm/dl Lipase 45 L (73-393) U/L Procalcitonin 97.52 H (0-0.5) ng/ml Nasal Screen MRSA (PCR) Anaplasma Smear A. phagocytophilum DNA Lyme Disease IgG Ab (Negative) Lyme Disease IgM Ab (Negative) COVID-19 Eval Order SARS-CoV-2 (PCR) (Negative) 04/01/21 04/01/21 Range/Units 00:23 00:23 WBC 2.11 L (4.8-10.8) K/uL RBC 4.11 L (4.2-5.4) M/uL Hgb 12.8 (12.0-16.0) g/dL Hct 38.1 (37-47) % MCV 92.7 (80-100) fL MCH 31.1 (25-34) pg MCHC 33.6 (32-36) g/dL RDW Std Deviation 49.8 H (36.4-46.3) fL RDW Coeff of Vannessa 14.7 H (11.5-14.5) % Plt Count 90 L (130-400) K/uL MPV 10.8 H (7.4-10.4) fL Neutrophils % (Manual) 71.3 % Lymphocytes % (Manual) 16.1 % Metamyelocytes % (Man) 6.3 % Myelocytes % (Man) 6.3 % Neutrophils # (Manual) 1.50 (1.4-6.5) K/uL Total Absolute Neuts 1.50 (1.4-6.5) K/uL Lymphocytes # (Manual) 0.34 L (1.2-3.4) K/uL Total Abs Lymphocytes 0.34 L (1.2-3.4) K/uL Metamyelocytes # (Man) 0.13 H (0-0) K/uL Myelocytes # (Manual) 0.13 H (0-0) K/uL Toxic Vacuolation 3+ Dohle Bodies 3+ Platelet Estimate Decreased L (Normal) Giant Platelets 2+ Echinocytes 2+ PT (9.0-12.0) Seconds INR (0.9-1.1) APTT (21.0-31.0) Seconds PTT Ratio Fibrinogen (184-400) mg/dl D-Dimer (0-500) ug/L FEU ABG pH (7.35-7.45) ABG pCO2 (35-46) mmHg ABG pO2 (80-95) mmHg ABG HCO3 (19-24) mmol/L ABG O2 Saturation (90-95) % ABG Base Excess (-9-1.8) mEq/L Pio Test (Pos) VBG pH (7.36-7.41) VBG pCO2 (38-50) mmHg VBG pO2 mmHg VBG HCO3 mmol/L VBG O2 Saturation % VBG Base Excess mEq/L Barometric Pressure mm/Hg Oxygen Given Sodium (136-145) mmol/L Potassium (3.5-5.1) mmol/L Chloride (98-107) mmol/L Carbon Dioxide (21-32) mmol/L Anion Gap (3-11) BUN (7-18) mg/dl Creatinine (0.6-1.2) mg/dl Est Cr Clr Drug Dosing Est GFR ( Amer) ml/min Est GFR (Non-Af Amer) ml/min BUN/Creatinine Ratio (10-20) Glucose (70-99) mg/dl Lactate 9.1 H* (0.4-2.0) mmol/L Calcium (8.5-10.1) mg/dl Magnesium (1.8-2.4) mg/dl Total Bilirubin (0.2-1) mg/dl Direct Bilirubin (0-0.2) mg/dl AST (15-37) U/L ALT (12-78) U/L Alkaline Phosphatase (45-117) U/L Troponin I (0-0.045) ng/ml Total Protein (6.4-8.2) gm/dl Albumin (3.4-5.0) gm/dl Lipase (73-393) U/L Procalcitonin (0-0.5) ng/ml Nasal Screen MRSA (PCR) Anaplasma Smear See Comment A. phagocytophilum DNA Lyme Disease IgG Ab (Negative) Lyme Disease IgM Ab (Negative) COVID-19 Eval Order SARS-CoV-2 (PCR) (Negative) Medications Administered Current Inpatient Medications Vancomycin HCl 1,250 mg/ (Sodium Chloride) 525 mls @ 200 mls/hr IV NOW ONE Stop: 04/01/21 03:43 Sodium Chloride (Nss 1000ml) 1,000 mls @ 999 mls/hr IV .Q1H1M ONE Stop: 04/01/21 03:33 Last Admin: 04/01/21 02:42 Dose: 999 mls/hr Documented by: Norepinephrine Bitartrate (Levophed/D5w) 8 mg in 508 mls @ 20.174 mls/hr IV .Q24H DAVIE; Protocol Stop: 05/01/21 03:14 Miscellaneous Information (Piperacill/Tazobac Consult Active) 1 ea N/A UD PRN PRN Reason: Consult Stop: 05/01/21 01:05 Miscellaneous Information (Vancomycin Consult Active) 1 ea N/A UD PRN PRN Reason: Consult Stop: 05/01/21 01:05 Home Medication List Medication Instructions Recorded aspirin 81 mg PO DAILY 05/25/19 atorvastatin 20 mg tablet 20 mg PO HS #90 tab 11/10/20 Critical Care Time Critical Care Time: Yes Total Critical Care Time: 60 Supervising Physician Co-Signing Physician Notes Attending addendum: I have physically seen this patient, have supervised the medical residents activities, and agree with the H&P unless as otherwise noted. Assessment and Plan: Septic shock- Admission to the ICU Empiric antibiotics with Zosyn IV until source determined. MRSA swab negative CT chest PE protocol due to elevated D-dimer of [address] abdomen pelvis pending Continue Levophed and titrate per protocol COVID-19 negative in ED Follow blood and urine cultures Acute renal failure- Creatinine 3.8 upon admission, with baseline 1.04 Likely prerenal secondary to dehydration Continue IV fluids, and follow serially Elevated troponin- 1.10 upon admission follow serially EKG without acute changes Likely supply demand type II [place] Abnormal LFTs- Await CT abdomen pelvis Follow serially Remaining orders and notations as noted Resident Activity Tracking Resident Involvement: Resident Care Provided Care Provided: Adult Hospital Medicine (1) Acute renal failure Acute renal failure type: unspecified Qualified Code(s): N17.9 - Acute kidney failure, unspecified
[2021-04-01] MEDS ORDERED: STAT IV Infusion **Titration per Protocol STA (03:08)
[2021-04-01] MEDS ORDERED: NOREPINEPHRINE/D5W 8 MG/508 ML BAG IV SCH (03:15)
[2021-04-01] MEDS ORDERED: ICU PROTOCOL FOR HYPERGLYCEMIA PRN (03:51)
[2021-04-01 03:53] LABS: Appearance Urine Turbid (Clear); Bacteria Urine Automated 4+ (Negative); Blood Urine 3+ (Negative); Color Urine Dark Yellow; Glucose Urine UA Negative (Negative); Ketones Urine Trace (Negative); Leukocyte Esterase Urine 2+ (Negative); Nitrite Urine Negative (Negative); Protein Urine 2+ (Negative); Specific Gravity Urine 1.019 (1.000-1.030); Urobilinogen Urine Negative (Negative); WBC Urine Automated >30 /hpf (0-5)
[2021-04-01 03:55] LABS: Bilirubin Urine 1+ (Negative)
[2021-04-01 04:13] LABS: RBC Urine Automated >30 /hpf (0-4)
[2021-04-01 04:15] LABS: Calcium Oxalate Crystals Urine Present (None Prsent)
[2021-04-01] MEDS ORDERED: POLYETHYLENE (MIRALAX) 17 GM PACK PO PRN (04:56)
[2021-04-01] MEDS ORDERED: MoRPHine SULFATE 2 MG/ML CARP IV PRN (04:56)
[2021-04-01] MEDS ORDERED: ALUMINUM/MAGNESIUM SUSP 30 ML UDC PO PRN (04:56)
[2021-04-01] MEDS ORDERED: ACETAMINOPHEN 325 MG TAB PO PRN (04:56)
[2021-04-01] MEDS ORDERED: MAGNESIUM HYDROXIDE SUSP 30 ML UDC PO PRN (04:56)
[2021-04-01] MEDS ORDERED: NITROGLYCERIN SL 0.4 MG/TAB TAB SL PRN (04:56)
[2021-04-01] MEDS ORDERED: SODIUM CHLORIDE 0.9% 1000ML 1,000 ML IV SCH (04:56)
[2021-04-01] MEDS ORDERED: ONDANSETRON INJ 2 MG/ML 2 ML VIAL IV PRN ×2 (04:56→10:49)
--- NOTE | 2021-04-01 05:19 | Critical Care Consultation ---
Date of Consultation April 01, 2021 Assessment & Plan (1) Septic shock: Reason Critically Ill: 65-year-old female presents to the ICU with urosepsis requiring vasopressors, with left hydronephrosis from obstructing ureteral calculi Neuro - [facility] ICU: Negative Cardiac - Shocklikely septic in the setting of hydronephrosis/UTI with obstructing ureteral calculi. Expect patient will likely undergo ureteral stent. Will follow urology recommendation -CVC inserted and patient currently on Levophed drip, titrate for MAP greater than 65 -Troponin mildly elevated likely demand ischemia in the setting of sepsis/MISSAEL. Patient without chest pain and no ST elevations on EKG. Trend for now -Cortisol pending -Echo pending -Continuous monitor on telemetry Respiratory - Patient currently maintaining oxygen saturation on 2 L nasal cannula. No prior history of pulmonary disease Continuous monitoring on pulse ox and wean oxygen as tolerated GI - N.p.o. RENAL/LYTES - AKIlikely obstructive versus ATN in the setting of shock/severe dehydration -Patient received 4 L crystalloid bolus in the ED, continue IV fluid resuscitation -No electrolyte abnormalities at this time, monitor routine BMPs -Urology stat consulted regarding left hydronephrosis and ureteral calculi, follow-up rec -Maintain maps greater than 65 with Levophed drip -Monitor strict I's and O's Lactic acidosisimproving, continue to trend - Foleystrict I's and O's ENDO - No history of diabetes or thyroid disease ICU hyperglycemic protocol HEME - H&H stable, monitor routine CBCs ID - Sepsispatient with leukocytosis, fevers, elevated lactate and procalcitonin -Currently hypotensive, on Levophed -Blood cultures and urine culture pending -UA turbid with +4 bacteria, CT abdomen and pelvis reveals obstructing left ureteral calculi with hydronephrosis -Urology consulted, follow rec -Continue Zosyn LINES/IV ACCESS - Right IJ central line DVT PROPHYLAXIS - SCDs, hold anticoagulation for now Elevated D-dimerlikely in the setting of severe sepsis. Venous Doppler study negative for DVT. No other evidence of blood clot. Hold on anticoagulant for procedure I have personally spent 45 minutes of critical care time in the direct management of this patient. This is a life/limb threatening event. This includes time spent evaluating patient, direct bedside care, chart review, placing orders, interpretation of diagnostic studies, discussion with consultants, patient, and family members, as well as other required patient management activities. This time is exclusive of all separately billable procedures, and teaching time and separate from and in addition to any other critical care service time. Thank you for allowing us to participate in the care of this patient. Please refer to my attending physician's documentation for any further recommendations. (2) Lactic acidosis: (3) Hydronephrosis with obstructing calculus: (4) MISSAEL (acute kidney injury): (5) Hypercholesteremia: (6) Gastroesophageal reflux disease: History of Present Illness Attending Physician: Will Lee MD History of Present Illness Patient is a 65-year-old female without significant past medical history presented to the emergency department with complaints of shortness of breath x2 days and subjective fever. In the emergency department patient was found to have leukocytosis, MISSAEL, elevated lactate and procalcitonin. She became hypotensive and was given 4 L crystalloid, however ultimately required vasopressors. Patient was transferred to the ICU for septic shock and central line placed on arrival. She underwent CT abdomen the pelvis and chest, which revealed moderate left hydronephrosis from obstructive calculi. I spoke with urology regarding CT findings, patient will likely undergo ureteral stent this morning. Patient to remain in ICU for further monitoring at this time. Currently patient denies headache, dizziness, nausea or vomiting, recent illness , cough, shortness of breath, chest pain, palpitations, abdominal pain, changes in bowel movement, swelling in hands or feet. Allergies Allergy/AdvReac Type Severity Reaction Status Date / Time hydrocodone Allergy Unknown Rash Verified 04/01/21 00:42 Home Medications Medication Instructions Recorded Confirmed Type aspirin 81 mg PO DAILY 05/25/19 04/01/21 History atorvastatin 20 mg tablet 20 mg PO HS #90 tab 11/10/20 04/01/21 Rx Patient History Medical History Acute bronchitis with bronchospasm Biliary dyskinesia Gastroesophageal reflux disease Hypercholesteremia Hyperlipidemia Impaired fasting glucose Kidney stones Surgical History History of cholecystectomy History of esophagogastroduodenoscopy (EGD) History of hysterectomy Hx of cataract surgery Family History Mother Diabetes Sister Cancer Denies family history of Ovarian cancer Prostate cancer Myocardial infarction Breast cancer Colorectal cancer Social History Smoking Status: Former smoker Tobacco Type: Cigarettes Age Started Using Tobacco: 14; Age Quit Using Tobacco: 45; packs per day: 0.75; Smoking End Date: 20 yrs ago; Second Hand Exposure: No; Hx Alcohol Use: Yes Alcohol type: other Alcohol Intake Frequency: 2-4 x/Month Hx Substance Use: No Preferred Language: Italian Communication Ability: Effective Visual Impairment: No Limitations Hearing Ability: Hard of Hearing Golf Ball Winder Required: No Beliefs That Will Affect Care: None marital status: Current Living Situation: Spouse current occupational status: retired current occupation: retired from [employer] position at [employer] Other Information That Helps Us Care for You: No Feels Safe at Home: Yes Safety Concerns: Feels Safe At This Time Childhood Exposure to Second-Hand Smoke: No Dental Care, Regularly: No Physical Activity Frequency: Does not Exercise Seatbelt Use: always Sunscreen Use: No Assistive Devices: Denture - Upper, Denture - Lower and Oxygen - Continuous Review of Systems Review of Systems: All systems reviewed & are unremarkable except as noted in HPI & below Physical Exam Constitutional: cooperative and comfortable Eyes: PERRL, conjunctivae normal, anicteric sclerae ENMT: external ear and nose normal, oropharynx normal Neck: trachea midline, no thyromegaly Respiratory: normal respiratory effort, lungs clear to auscultation Cardiovascular: RRR, no murmur, no edema Heart Sounds: normal S1 and normal S2; no murmur Vessels: no JVD Gastrointestinal (Abdomen): normal bowel sounds, soft, nontender, no hepatosplenomegaly Musculoskeletal: no cyanosis or clubbing, extremities motor strength 5/5 Skin: no rashes, warm and dry Neurologic: PERRL, EOMI, accommodation nl, no face palsy, no dysarthria Psychiatric: A+Ox3, euthymic affect Genitourinary: Indwelling Chen catheter Results & Data Results & Data ([facility]) Vital Signs (Past 12 Hours) Vital Signs Temp Pulse Resp BP Pulse Ox 04/01/21 04:00 102 H 25 H 82/56 L 95 04/01/21 03:55 105 H 27 H 79/52 L 96 04/01/21 03:50 105 H 31 H 82/55 L 96 04/01/21 03:48 102 H 24 93/51 L 96 04/01/21 03:45 102 H 25 H 82/58 L 96 04/01/21 03:43 104 H 27 H 83/55 L 95 04/01/21 03:40 104 H 31 H 86/29 L 95 04/01/21 03:35 103 H 38 H 85/52 L 95 04/01/21 03:30 105 H 27 H 92/52 L 95 04/01/21 03:25 108 H 36 H 81/52 L 94 04/01/21 03:21 109 H 31 H 95 04/01/21 03:20 106 H 25 H 69/46 L 95 04/01/21 03:16 108 H 40 H 95 04/01/21 03:15 107 H 30 H 77/46 L 95 04/01/21 03:11 107 H 25 H 96 04/01/21 03:10 107 H 36 H 72/45 L 95 04/01/21 03:06 106 H 49 H 96 04/01/21 03:05 105 H 30 H 68/47 L 96 04/01/21 03:04 93 H 30 H 74/50 L 95 04/01/21 03:02 105 H 26 H 79/52 L 95 04/01/21 03:01 104 H 29 H 96 04/01/21 03:00 105 H 33 H 69/52 L 95 04/01/21 02:55 104 H 26 H 94 04/01/21 02:50 104 H 28 H 94 04/01/21 02:49 106 H 29 H 95 04/01/21 02:48 101 H 28 H 95 04/01/21 02:47 101 H 33 H 95 04/01/21 02:46 102 H 26 H 96 04/01/21 02:45 104 H 30 H 84/49 L 95 04/01/21 02:44 102 H 30 H 95 04/01/21 02:43 103 H 32 H 95 04/01/21 02:42 106 H 27 H 95 04/01/21 02:41 106 H 25 H 94 04/01/21 02:40 107 H 25 H 73/51 L 95 04/01/21 02:39 106 H 29 H 96 04/01/21 02:38 108 H 27 H 04/01/21 02:37 107 H 28 H 04/01/21 02:36 107 H 35 H 04/01/21 02:35 110 H 31 H 85/51 L 04/01/21 02:34 108 H 26 H 04/01/21 02:33 109 H 34 H 04/01/21 02:32 110 H 31 H 65/40 L 04/01/21 02:31 101 H 31 H 04/01/21 02:30 109 H 34 H 79/42 L 04/01/21 02:29 109 H 26 H 72/44 L 04/01/21 02:28 109 H 32 H 66/42 L 04/01/21 02:27 110 H 26 H 04/01/21 02:26 112 H 31 H 04/01/21 02:25 110 H 37 H 04/01/21 02:24 112 H 38 H 04/01/21 02:23 111 H 29 H 04/01/21 02:22 111 H 32 H 04/01/21 02:21 111 H 32 H 04/01/21 02:20 110 H 23 04/01/21 02:19 110 H 27 H 04/01/21 02:18 109 H 35 H 04/01/21 02:17 111 H 39 H 04/01/21 02:16 110 H 33 H 04/01/21 02:15 109 H 29 H 04/01/21 02:14 110 H 24 04/01/21 02:13 80 24 04/01/21 02:12 109 H 30 H 04/01/21 02:06 111 H 30 H 04/01/21 02:00 113 H 31 H 103/63 04/01/21 01:13 38.5 C H 04/01/21 00:01 38.1 C H 130 H 30 H 152/70 H 94 Coding Level of Care Code Critical Care 1st 30-74 mins Diagnoses Septic shock A41.9; R65.21 Lactic acidosis E87.2 Hydronephrosis with obstructing calculus N13.2 MISSAEL (acute kidney injury) N17.9 Hypercholesteremia E78.00 Gastroesophageal reflux disease K21.9
[2021-04-01] MEDS ORDERED: HEPARIN SOD 5,000 UNIT/0.5 ML VIAL SQ SCH (06:00)
--- NOTE | 2021-04-01 06:05 | Procedure Note ---
Procedure Note Date of Service April 01, 2021 Note INTERNAL JUGULAR CENTRAL LINE PROCEDURE NOTE: Procedure: Internal Jugular Central Line Placement Attending: Dr. Little Provider: MEG Manzano Indication: Central Drug Administration Anesthesia:Lidocaine 1% Line placed emergently in the setting of septic shock with hypotension requiring vasopressor support. A time-out was completed verifying correct patient, procedure, site, positioning, and implants(s) or special equipment if applicable. Patients right neck was cleansed and draped in the typical sterile fashion using Chloraprep. The Internal Jugular Vein and Carotid Artery were identified using ultrasound. The superficial tissue was anesthetized using 3 mL of 1% lidocaine without epinephrine under direct visualization with the ultrasound. After adequate anesthetization was achieved, the Internal Jugular vein was cannulated under direct ultrasound guidance using an introducer needle on a syringe. Good venous blood return was maintained prior to removal of syringe from introducer needle. Using Seldinger Technique, a guide wire was advanced through the introducer needle without resistance. The introducer needle was removed and ultrasound images were obtained of the guide wire within the Internal Jugular Vein and saved to the patients medical record. A small incision was made in penetrating fashion at the guide wire insertion site utilizing an 11 blade scalpel. The dilator was advanced to the vessel without resistance. The dilator was exchanged for the triple lumen catheter which was advanced into the vessel without resistance. The guide wire was removed intact from the catheter without issue. Claves were placed on each catheter tip with confirmation of good blood flow from each lumen. Each port was easily flushed with sterile saline. The catheter was placed at 17 cm and sutured in place. BioPatch was applied to the catheter and a sterile Tegaderm dressing was applied over the catheter with careful attention to sterility. Patient tolerated procedure well. No immediate complications were met. Post procedure x-ray was completed, placement was appropriate and no pneumothorax was noted. Images obtained are saved for permanent record Procedural Ultrasound Guidance: Procedure Date: 04/01/2021 Indication: 04/01/2021 Attending: Dr. Little Provider: MEG Manzano Artery AND Vein visualized: Yes Compressible Vein: Yes Guidewire or Short Catheter seen in vein prior to dilation: Yes Line confirmed in Vein with ultrasound: Yes Images obtained are saved for permanent record. Coding CPT Codes Tubes, Drains, and Vasc Access - Tubes, Drains, and Vasc Access: [id number] Place catheter in vein superior or inferior vena cava ([id number]) Tubes, Drains, and Vasc Access - Tubes, Drains, and Vasc Access: [id number] Ultrasound Guidance For Vascular ([id number]) [facility] [place] Procedure Codes (Charges) Tubes, Drains, and Vasc Access Procedure 1: Tubes, Drains, and Vasc Access: [id number] Place catheter in vein superior or inferior vena cava Procedure 2: Tubes, Drains, and Vasc Access: [id number] Ultrasound Guidance For Vascular
--- NOTE | 2021-04-01 07:18 | XRay Report ---
XR chest 1V portable HISTORY: Central venous catheter insertion. COMPARISON: Chest 04/01/2021. FINDINGS: There is a right jugular central venous catheter which terminates in the distal SVC. No pne umothorax. No pleural effusions. There are low lung volumes. A few bibasilar linear densities consist ent with subsegmental atelectasis. The heart remains enlarged. No evidence for pulmonary edema. IMPRESSION: Right jugular central venous catheter terminates at the distal SVC. No pneumothorax. ACT 112: Negative or not required by law. Electronically signed by: Mark Doan M.D. 04/01/2021 7:16 AM
--- NOTE | 2021-04-01 07:31 | XRay Report ---
XR chest 1V portable HISTORY: sepsis COMPARISON: None. FINDINGS: No pneumothorax. No pleural effusions. A few bibasilar linear densities consistent with sub segmental atelectasis. No focal lung consolidations to suggest pneumonia. No evidence for pulmonary e dayna. The cardiac silhouette is top normal in size. There are degenerative changes noted within the s houlders. IMPRESSION: No acute process. ACT 112: Negative or not required by law. Electronically signed by: Mark Doan M.D. 04/01/2021 7:30 AM
--- NOTE | 2021-04-01 07:55 | CT Scan Report ---
CT OF THE CHEST WITHOUT IV CONTRAST CLINICAL HISTORY: Sepsis. COMPARISON STUDY: Chest radiograph April 01, 2021. TECHNIQUE: Axial images of the chest were obtained without IV contrast. Images were reviewed in the axial, sagittal, and coronal planes. IV contrast was not administered for this examination. Automat ed exposure control was utilized for the study. A dose lowering technique was utilized adhering to t he principles of ALARA. FINDINGS: Size of the heart is at the upper limits of normal. There is no pericardial effusion. Ther e are prominent mediastinal and bilateral hilar lymph nodes. There are trace bilateral pleural effusi ons with associated atelectasis. There is no consolidation to suggest pneumonia. No pneumothorax is p resent. No acute fracture or suspicious lesion is identified within visualized skeletal structures. T here is a small hiatal hernia. There is a small amount of fluid within the hernia sac. No acute fract ure or suspicious lesion is identified within the visualized skeletal structures. IMPRESSION: 1. No consolidation to suggest pneumonia. 2. Trace bilateral pleural effusions with associated subsegmental atelectasis. 3. Prominent mediastinal and bilateral hilar lymph nodes. These are indeterminate although probably b enign. ACT 112: Negative or not required by law. Electronically signed by: Mumtaz Delaney M.D. 04/01/2021 7:54 AM
--- NOTE | 2021-04-01 07:56 | Ultrasound Report ---
BILATERAL LOWER EXTREMITY VENOUS DOPPLER CLINICAL HISTORY: elevated D-dimer COMPARISON STUDY: No previous studies for comparison. TECHNIQUE: Sonography of the deep venous system of the bilateral lower extremities was performed. Co mpression and augmentation were evaluated. FINDINGS: The bilateral common femoral, superficial femoral and popliteal veins were compressible. A ugmentation was normal. Flow was shown within the deep calf vessels. IMPRESSION: No evidence of deep venous thrombus within the bilateral lower extremities. ACT 112: Negative or not required by law. Electronically signed by: Mumtaz Delaney M.D. 04/01/2021 7:55 AM
--- NOTE | 2021-04-01 08:28 | Urology Consultation ---
Date of Consultation April 01, 2021 Assessment & Plan (1) Hydronephrosis with obstructing calculus: (2) MISSAEL (acute kidney injury): (3) Septic shock: 65yo F admitted with sepsis secondary to an obstructing 13x8mm proximal left ureteral calculus with hydronephrosis. - Hospital course, CT imaging, labs, and urinalysis reviewed. - CTAP remarkable for an obstructing proximal left ureteral stone with hydronephrosis. - She is currently afebrile. - Labs reviewed, Wbc 2.11 and creatinine 3.8. - Plan of care and CT imaging reviewed with Dr. Reynoso, on-call urologist. - Given her sepsis in the setting an obstructing proximal left ureteral stone with hydronephrosis and MISSAEL, will proceed to the OR for Cystoscopy, Left retrograde pyelogram, and Left ureteral stent placement. Risks and benefits to be reviewed with patient by . - OR notified. Currently on IV Zosyn. Covid test negative. - Keep NPO for procedure today. - Expected clinical course reviewed with patient. She is agreeable to plan, all questions were answered. Supervising Physician Co-Signing Physician Notes Pt seen and consented for stent placement History of Present Illness Attending Physician: Rodolfo Arce MD History of Present Illness 65yo F presented to the ED last evening with c/o shortness of breath and feeling ill for approximately 3-[address] abdomen pelvis obtained on presentation and remarkable for an obstructing 13 x 8 mm proximal left ureteral stone with moderate hydronephrosis. The patient was admitted to the ICU with sepsis requiring vasopressors. Past medical hx includes GERD and hypercholesteremia. Hx of hysterectomy. Chart review: On presentation to the ED, she was tachycardic, hypotensive, febrile, and ill appearing. Wbc 2.11, Hgb 12.8, Cr 3.80. Lactate, troponin, and d-dimer all elevated. Urinalysis remarkable for 3+blood, negative nitrite, 2+leuks, >30WBC, >30RBC, 4+bacteria. Urine and blood cultures pending. Patient is on IV Zosyn. She was given a dose of IV Vanco in the ED. CT abdomen pelvis: 1. 1.2 x 0.8 cm left ureteropelvic junction calculus which results in moderate left hydronephrosis. 2. Left-sided nephrolithiasis. 3. Hepatic steatosis. 4. Colonic diverticulosis without evidence for acute diverticulitis. Patient examined at bedside this AM. Awake, resting in bed on arrival. She currently denies any back, flank, or suprapubic pain. She has a posadas catheter in place, draining tania urine. She did have breakfast this morning. Denies any nausea or vomiting. Denies fevers or chills at this time. The patient states she is feeling much better since coming into the ED. Her shortness of breath has improved following starting on O2. Denies CP. Denies dizziness. The patient reports prior to coming in the ER, she had been feeling ill for a few days. She denies any associated pain. She did not notice any hematuria or dysuria. However, she did report noticing difficulty with urination and a decrease in urine output for a few days. She did note chills and sweats on Tuesday, however no other associated symptoms. She reports a hx of kidney stones previously treated with lithotripsy approximately 7 years ago. She has not seen a urologist since then. Offers no additional complaints at this time. Allergies Allergy/AdvReac Type Severity Reaction Status Date / Time hydrocodone Allergy Unknown Rash Verified 04/01/21 00:42 Home Medications Medication Instructions Recorded Confirmed Type aspirin 81 mg PO DAILY 05/25/19 04/01/21 History atorvastatin 20 mg tablet 20 mg PO HS #90 tab 11/10/20 04/01/21 Rx Patient History Medical History Acute bronchitis with bronchospasm Biliary dyskinesia Gastroesophageal reflux disease Hypercholesteremia Hyperlipidemia Impaired fasting glucose Kidney stones Surgical History History of cholecystectomy History of esophagogastroduodenoscopy (EGD) History of hysterectomy Hx of cataract surgery LEFT Family History Mother Diabetes Sister Cancer Denies family history of Ovarian cancer Prostate cancer Myocardial infarction Breast cancer Colorectal cancer Social History Smoking Status: Former smoker Tobacco Type: Cigarettes Age Started Using Tobacco: 14; Age Quit Using Tobacco: 45; packs per day: 0.75; Smoking End Date: 20 yrs ago; Second Hand Exposure: No; Hx Alcohol Use: Yes Alcohol type: other Alcohol Intake Frequency: 2-4 x/Month Hx Substance Use: No Preferred Language: Surinamese Communication Ability: Effective Visual Impairment: No Limitations Hearing Ability: Hard of Hearing 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: No Beliefs That Will Affect Care: None marital status: Current Living Situation: Spouse current occupational status: retired 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 [employer] Other Information That Helps Us Care for You: No Feels Safe at Home: Yes Safety Concerns: Feels Safe At This Time Childhood Exposure to Second-Hand Smoke: No Dental Care, Regularly: No Physical Activity Frequency: Does not Exercise Seatbelt Use: always Sunscreen Use: No Assistive Devices: Denture - Upper, Denture - Lower and Oxygen - Continuous Review of Systems Review of Systems: All systems reviewed & are unremarkable except as noted in HPI & below Physical Exam Constitutional: cooperative; no acute distress Respiratory: no labored breathing and no audible wheezes On 2L O2 Cardiovascular: Extremities: no calf tenderness Gastrointestinal (Abdomen): Percussion/Palpation: abdomen soft; abdomen nontender and no guarding Musculoskeletal: Head/Neck/Chest: normocephalic Skin: No visible rashes or lesions. Neurologic: awake Psychiatric: A+Ox3, euthymic affect Genitourinary: no CVA tenderness Posadas catheter intact Results & Data ([facility]) Vital Signs (Past 12 Hours) Vital Signs Temp Pulse Pulse Resp BP BP Pulse Ox 04/01/21 07:15 37.4 C 90 27 H 97 04/01/21 07:13 37.4 C 93 H 34 H 98/75 L 96 04/01/21 07:01 37.4 C 94 H 32 H 97 04/01/21 06:59 37.4 C 94 H 36 H 97/67 L 97 04/01/21 06:58 37.4 C 83 18 79/62 L 97 04/01/21 06:45 37.4 C 94 H 28 H 97 04/01/21 06:43 37.4 C 93 H 28 H 82/66 L 96 04/01/21 06:30 37.4 C 93 H 27 H 97 04/01/21 06:28 37.4 C 92 H 29 H 93/57 L 96 04/01/21 06:15 37.4 C 96 H 26 H 95 04/01/21 06:13 37.4 C 97 H 27 H 96/62 L 96 04/01/21 06:02 103 H 04/01/21 06:00 37.4 C 98 H 19 95 04/01/21 05:58 37.5 C 101 H 29 H 93/66 L 97 04/01/21 05:45 37.6 C H 102 H 27 H 97 04/01/21 05:44 37.6 C H 101 H 28 H 96 04/01/21 05:43 37.6 C H 102 H 29 H 86/60 L 96 04/01/21 05:30 37.6 C H 103 H 25 H 95 04/01/21 05:29 37.8 C H 106 H 25 H 81/63 L 95 04/01/21 05:28 37.6 C H 103 H 31 H 92/65 L 97 04/01/21 05:13 37.7 C H 102 H 22 81/61 L 95 04/01/21 05:00 37.8 C H 106 H 23 95 04/01/21 04:58 37.8 C H 106 H 19 81/63 L 95 04/01/21 04:51 106 H 11 L 04/01/21 04:20 106 H 34 H 83/60 L 95 04/01/21 04:00 102 H 25 H 82/56 L 95 04/01/21 03:55 105 H 27 H 79/52 L 96 04/01/21 03:50 105 H 31 H 82/55 L 96 04/01/21 03:48 102 H 24 93/51 L 96 04/01/21 03:45 102 H 25 H 82/58 L 96 04/01/21 03:43 104 H 27 H 83/55 L 95 04/01/21 03:40 104 H 31 H 86/29 L 95 04/01/21 03:35 103 H 38 H 85/52 L 95 04/01/21 03:30 105 H 27 H 92/52 L 95 04/01/21 03:25 108 H 36 H 81/52 L 94 04/01/21 03:21 109 H 31 H 95 04/01/21 03:20 106 H 25 H 69/46 L 95 04/01/21 03:16 108 H 40 H 95 06/16/21 03:15 107 H 30 H 77/46 L 95 04/01/21 03:11 107 H 25 H 96 04/01/21 03:10 107 H 36 H 72/45 L 95 04/01/21 03:06 106 H 49 H 96 04/01/21 03:05 105 H 30 H 68/47 L 96 04/01/21 03:04 93 H 30 H 74/50 L 95 04/01/21 03:02 105 H 26 H 79/52 L 95 04/01/21 03:01 104 H 29 H 96 04/01/21 03:00 105 H 33 H 69/52 L 95 04/01/21 02:55 104 H 26 H 94 04/01/21 02:50 104 H 28 H 94 04/01/21 02:49 106 H 29 H 04/01/21 02:48 101 H 28 H 04/01/21 02:47 101 H 33 H 04/01/21 02:46 102 H 26 H 96 04/01/21 02:45 104 H 30 H 84/49 L 04/01/21 02:44 102 H 30 H 04/01/21 02:43 103 H 32 H 04/01/21 02:42 106 H 27 H 04/01/21 02:41 106 H 25 H 04/01/21 02:40 107 H 25 H 73/51 L 95 04/01/21 02:39 106 H 29 H 04/01/21 02:38 108 H 27 H 04/01/21 02:37 107 H 28 H 04/01/21 02:36 107 H 35 H 95 04/01/21 02:35 110 H 31 H 85/51 L 96 04/01/21 02:34 108 H 26 H 96 04/01/21 02:33 109 H 34 H 96 04/01/21 02:32 110 H 31 H 65/40 L 95 04/01/21 02:31 101 H 31 H 95 04/01/21 02:30 109 H 34 H 79/42 L 95 04/01/21 02:29 109 H 26 H 72/44 L 95 04/01/21 02:28 109 H 32 H 66/42 L 96 04/01/21 02:27 110 H 26 H 95 04/01/21 02:26 112 H 31 H 96 04/01/21 02:25 110 H 37 H 04/01/21 02:24 112 H 38 H 04/01/21 02:23 111 H 29 H 95 04/01/21 02:22 111 H 32 H 95 04/01/21 02:21 111 H 32 H 04/01/21 02:20 110 H 23 96 04/01/21 02:19 110 H 27 H 04/01/21 02:18 109 H 35 H 04/01/21 02:17 111 H 39 H 04/01/21 02:16 110 H 33 H 04/01/21 02:15 109 H 29 H 04/01/21 02:14 110 H 24 04/01/21 02:13 80 24 95 04/01/21 02:12 109 H 30 H 04/01/21 02:06 111 H 30 H 96 04/01/21 02:00 113 H 31 H 103/63 04/01/21 01:13 38.5 C H 04/01/21 00:01 38.1 C H 130 H 30 H 152/70 H 94 PG Care Time/CCT Total # of Minutes Spent Total Time Spent with Patient: Total time spent is greater than 50% in coordina tion of care (as documented) at patient's floor/unit and/or counseling patient: Coding Level of Care Code 52567 Initial Inpt Care Lvl 3 Diagnoses Hydronephrosis with obstructing calculus N13.2 MISSAEL (acute kidney injury) N17.9 Septic shock A41.9; R65.21
--- NOTE | 2021-04-01 08:58 | Hospitalist Progress Note ---
Date of Service April 01, 2021 Assessment & Plan (1) Hydronephrosis with obstructing calculus: (2) MISSAEL (acute kidney injury): Acute kidney injury from septic shock and perhaps obstructive neurolpathy taken to cystoscopy for relieve of the obstruction continues antibiotics of Vanco and Zosyn as listed below (3) Septic shock: 65yo F admitted with septic shock secondary to an obstructing proximal left ureteral calculus with hydronephrosis. - CTAP remarkable for an obstructing proximal left ureteral stone with hydronephrosis -she is leukopenic and is still requiring pressors, Dr. Reynoso, on-call urologist did cysto and left ureteral stent placement - Vanco and IV Zosyn. Covid test negative, lyme and anaplasmosis negative . - cultures pending (4) Transaminitis: likely secondary to shock (5) Elevated d-dimer: negative venous doppler, likely secondary to inflammatory state from sepsis (6) Hypomagnesemia: replete (7) Elevated troponin: Troponin mildly elevated likely demand ischemia in the setting of sepsis/MISSAEL. Patient without chest pain and no ST elevations on EKG. Trend for now -Echo pending Admission and Anticipated Discharge Date Admission Date: April 01, 2021 Subjective Patient was more awake and alert than expected for being on pressors with septic shock from urinary source. She is going to be taken to the cystoscopy suite for left ureteral stent placement to relieve hydronephrosis seen on imaging Review of Systems Review of Systems: Distress and significant fatigue overall weakness no headache, no visual changes no speech or swallowing issues no chest pain, pressure or palpitations no shortness of breath, cough or wheezes Neurologic left-sided abdominal pain Urinary frequency no focal joint pain or swelling no back pain, CVA tenderness or radicular pain no bruising, bleeding or rashes no focal signs of weakness or numbness or altered sensation no complaints of anxiety or depression.. Physical Exam Physical Exam: The patient appeared well nourished and normally developed. Vital signs as documented. Head exam is normocephalic atraumatic Neck is without JVD, thyromegaly, or carotid bruits. Lungs are clear to auscultation, no focal loss of breath sounds Cardiac exam, Rhythm is tachycardic but regular.. No murmurs, rubs or gallops. Abdominal exam reveals a minor left-sided tenderness no significant rebound or guarding Extremities are nonedematous and both pedal pulses are present Neurologic exam is alert and oriented, no focal loss of strength or sensation Skin is without bruises or rashes Psychologically is without concerns for anxiety or depression Results & Data Results & Data ([facility]) Vital Signs (Past 12 Hours) Vital Signs Temp Pulse Pulse Resp BP BP Pulse Ox 04/01/21 07:27 90 04/01/21 07:15 99.3 F 90 27 H 97 04/01/21 07:13 99.3 F 93 H 34 H 98/75 L 96 04/01/21 07:01 99.3 F 94 H 32 H 97 04/01/21 06:59 99.3 F 94 H 36 H 97/67 L 97 04/01/21 06:58 99.3 F 83 18 79/62 L 97 04/01/21 06:45 99.3 F 94 H 28 H 97 04/01/21 06:43 99.3 F 93 H 28 H 82/66 L 96 04/01/21 06:30 99.3 F 93 H 27 H 97 04/01/21 06:28 99.3 F 92 H 29 H 93/57 L 96 04/01/21 06:15 99.3 F 96 H 26 H 95 04/01/21 06:13 99.3 F 97 H 27 H 96/62 L 96 04/01/21 06:02 103 H 04/01/21 06:00 99.3 F 98 H 19 95 04/01/21 05:58 99.5 F 101 H 29 H 93/66 L 97 04/01/21 05:45 99.7 F H 102 H 27 H 97 04/01/21 05:44 99.7 F H 101 H 28 H 96 04/01/21 05:43 99.7 F H 102 H 29 H 86/60 L 96 04/01/21 05:30 99.7 F H 103 H 25 H 95 04/01/21 05:29 100.0 F H 106 H 25 H 81/63 L 95 04/01/21 05:28 99.7 F H 103 H 31 H 92/65 L 97 04/01/21 05:13 99.9 F H 102 H 22 81/61 L 95 04/01/21 05:00 100.0 F H 106 H 23 95 04/01/21 04:58 100.0 F H 106 H 19 81/63 L 95 04/01/21 04:51 106 H 11 L 04/01/21 04:20 106 H 34 H 83/60 L 95 04/01/21 04:00 102 H 25 H 82/56 L 95 04/01/21 03:55 105 H 27 H 79/52 L 96 04/01/21 03:50 105 H 31 H 82/55 L 96 04/01/21 03:48 102 H 24 93/51 L 96 04/01/21 03:45 102 H 25 H 82/58 L 96 04/01/21 03:43 104 H 27 H 83/55 L 95 04/01/21 03:40 104 H 31 H 86/29 L 95 04/01/21 03:35 103 H 38 H 85/52 L 95 04/01/21 03:30 105 H 27 H 92/52 L 95 04/01/21 03:25 108 H 36 H 81/52 L 94 04/01/21 03:21 109 H 31 H 95 04/01/21 03:20 106 H 25 H 69/46 L 95 04/01/21 03:16 108 H 40 H 95 04/01/21 03:15 107 H 30 H 77/46 L 95 04/01/21 03:11 107 H 25 H 96 04/01/21 03:10 107 H 36 H 72/45 L 95 04/01/21 03:06 106 H 49 H 96 04/01/21 03:05 105 H 30 H 68/47 L 96 04/01/21 03:04 93 H 30 H 74/50 L 95 04/01/21 03:02 105 H 26 H 79/52 L 95 04/01/21 03:01 104 H 29 H 96 04/01/21 03:00 105 H 33 H 69/52 L 95 04/01/21 02:55 104 H 26 H 94 04/01/21 02:50 104 H 28 H 94 04/01/21 02:49 106 H 29 H 95 04/01/21 02:48 101 H 28 H 95 04/01/21 02:47 101 H 33 H 95 04/01/21 02:46 102 H 26 H 96 04/01/21 02:45 104 H 30 H 84/49 L 95 04/01/21 02:44 102 H 30 H 04/01/21 02:43 103 H 32 H 04/01/21 02:42 106 H 27 H 04/01/21 02:41 106 H 25 H 04/01/21 02:40 107 H 25 H 73/51 L 04/01/21 02:39 106 H 29 H 96 04/01/21 02:38 108 H 27 H 04/01/21 02:37 107 H 28 H 04/01/21 02:36 107 H 35 H 04/01/21 02:35 110 H 31 H 85/51 L 04/01/21 02:34 108 H 26 H 96 04/01/21 02:33 109 H 34 H 04/01/21 02:32 110 H 31 H 65/40 L 04/01/21 02:31 101 H 31 H 04/01/21 02:30 109 H 34 H 79/42 L 04/01/21 02:29 109 H 26 H 72/44 L 04/01/21 02:28 109 H 32 H 66/42 L 96 04/01/21 02:27 110 H 26 H 04/01/21 02:26 112 H 31 H 04/01/21 02:25 110 H 37 H 04/01/21 02:24 112 H 38 H 04/01/21 02:23 111 H 29 H 04/01/21 02:22 111 H 32 H 04/01/21 02:21 111 H 32 H 04/01/21 02:20 110 H 23 04/01/21 02:19 110 H 27 H 04/01/21 02:18 109 H 35 H 04/01/21 02:17 111 H 39 H 04/01/21 02:16 110 H 33 H 04/01/21 02:15 109 H 29 H 04/01/21 02:14 110 H 24 04/01/21 02:13 80 24 95 04/01/21 02:12 109 H 30 H 04/01/21 02:06 111 H 30 H 96 04/01/21 02:00 113 H 31 H 103/63 04/01/21 01:13 101.3 F H 04/01/21 00:01 100.6 F H 130 H 30 H 152/70 H 94 PG Care Time/CCT Total # of Minutes Spent Total Time Spent with Patient: Total time spent is greater than 50% in coordination of care (as documented) at patient's floor/unit and/or counseling patient: Coding Level of Care Code 56385 Subseq Hosp Care Lvl 2 Diagnoses Hydronephrosis with obstructing calculus N13.2 MISSAEL (acute kidney injury) N17.9 Septic shock A41.9; R65.21 Transaminitis R74.01 Elevated d-dimer R79.89 Hypomagnesemia E83.42 Elevated troponin R77.8
[2021-04-01 09:04] LABS: BUN Creatinine Ratio 13.5 (10-20); Calcium 7.3 mg/dl (8.5-10.1); Creatinine Clr Calc Pharmacy 18.9 ml/min; Est GFR (African American) 15.5 ml/min; Est GFR (Non-African American) 13.4 ml/min; Potassium 3.6 mmol/L (3.5-5.1)
--- NOTE | 2021-04-01 09:04 | Anesthesiology Consultation ---
Date of Service April 01, 2021 Assessment & Plan Chart Review Chart Review: Acceptable Risk for Surgery and Patient NOT seen in Pre Admission Testing Consults Requested none ASA ASA4E History Surgery Operation Date: 04/01/21 10:10 Proposed Procedures p Cystoscopy, Left Stent Placement - Ricky Reynoso MD Height/Weight Height: 5 ft 4 in Weight: 103.1 kg Allergies Allergy/AdvReac Type Severity Reaction Status Date / Time hydrocodone Allergy Unknown Rash Verified 04/01/21 00:42 Medications Home Medications Medication Instructions Recorded Confirmed Last Taken aspirin 81 mg PO DAILY 05/25/19 04/01/21 06/03/19 atorvastatin 20 mg tablet 20 mg PO HS #90 tab 11/10/20 04/01/21 Unknown Active Medications Generic Name Dose Route Start Last Admin Trade Name Freq PRN Reason Stop Dose Admin Heparin Sodium (Porcine) 5,000 units 04/01/21 06:00 04/01/21 06:19 Heparin Sod 5,000 Unit/0.5 Ml Vial SQ 05/01/21 05:59 5,000 units Q8 DAVIE Administration Norepinephrine Bitartrate 8 mg in 508 mls @ 36.313 mls/hr 04/01/21 03:15 04/01/21 07:05 Levophed/D5w IV 05/01/21 03:14 0.09 mcg/kg/min .Q14H DAVIE 36.3 mls/hr Titration Protocol 0.09 MCG/KG/MIN Sodium Chloride 1,000 mls @ 100 mls/hr 04/01/21 04:56 04/01/21 05:18 Nss 1000ml IV 05/01/21 04:55 100 mls/hr .Q10H DAVIE Administration NPO Date Last Intake of Fluids: 04/01/21 Time Last Intake of Fluids: 08:00 Last Intake of Fluids Comment: sips of tea Date Last Intake of Solids: 04/01/21 Time Last Intake of Solids: 08:00 Last Intake of Solids Comment: 1/2 piece of toast; few bites of eggs Past Medical History Medical History Acute bronchitis with bronchospasm Biliary dyskinesia Gastroesophageal reflux disease Hypercholesteremia Hyperlipidemia Impaired fasting glucose Kidney stones Exercise / Class Metabolic Activity III < 4 Walking/Shop/Light housework Past Family History Family History Mother Diabetes Sister Cancer Denies family history of Ovarian cancer Prostate cancer Myocardial infarction Breast cancer Colorectal cancer Past Surgical History Surgical History History of cholecystectomy History of esophagogastroduodenoscopy (EGD) History of hysterectomy Hx of cataract surgery LEFT Past Anesthesia History No Hx of Anesthesia Complications and No Family Hx of Anesthesia Complications History of PONV No Hx of PONV and No Hx of Motion Sickness Social History Smoking Status: Former smoker tobacco type: cigarettes Smoking End Date: 20 yrs ago Hx Alcohol Use: Yes Alcohol type: other alcohol intake frequency: a few times a month Alcohol Intake Frequency Comment: ericttneptali Hx Substance Use: No substance use type: does not use Physical Exam Vital Signs Last Vital Signs Temp 37.4 C 04/01/21 07:15 Pulse 90 04/01/21 07:27 Resp 27 H 04/01/21 07:15 BP 98/75 L 04/01/21 07:13 Pulse Ox 97 04/01/21 07:15 Testing Laboratory Results 04/01/21 00:23 PT 12.9 Seconds (9.0-12.0) H 04/01/21 00:23 INR 1.3 (0.9-1.1) H 04/01/21 00:23 APTT 33.1 Seconds (21.0-31.0) H 04/01/21 00:23 Urine Color Dark Yellow 04/01/21 03:00 Urine Appearance Turbid (Clear) A 04/01/21 03:00 Urine pH 5.0 (4.5-7.5) 04/01/21 03:00 Ur Specific [place] 1.019 (1.000-1.030) 04/01/21 03:00 Urine Protein 2+ (Negative) H 04/01/21 03:00 Urine Glucose (UA) Negative (Negative) 04/01/21 03:00 Urine Ketones Trace (Negative) H 04/01/21 03:00 Urine Nitrite Negative (Negative) 04/01/21 03:00 Ur Leukocyte Esterase 2+ (Negative) H 04/01/21 03:00 Urine WBC (Auto) >30 /hpf (0-5) H 04/01/21 03:00 Urine RBC (Auto) >30 /hpf (0-4) H 04/01/21 03:00 U Hyaline Cast (Auto) 10-30 /lpf (0-5) H 04/01/21 03:00 U Epithel Cells (Auto) 5-10 /lpf (0-5) H 04/01/21 03:00 Urine Bacteria (Auto) 4+ (Negative) H 04/01/21 03:00 04/01/21 05:25 POC Glucose 146 H Electrocardiogram Date: 04/01/21 Findings: + NSST changes and + ST @ (at 110) Chest X-Ray Date: 04/01/21 Findings: + NAD and + atelectasis
--- NOTE | 2021-04-01 09:22 | CT Scan Report ---
CT OF THE ABDOMEN AND PELVIS WITHOUT CONTRAST CLINICAL HISTORY: Sepsis. COMPARISON STUDY: CT of the abdomen and pelvis August 03, 2011. KUB September 29, 2011. TECHNIQUE: Axial images of the abdomen and pelvis were obtained without IV contrast. Images were revi ewed in the axial, sagittal, and coronal planes. Automated exposure control was utilized for the levar dy. A dose lowering technique was utilized adhering to the principles of ALARA. FINDINGS: Please note that the chest CT will be reported separately. A 1.2 x 0.8 cm left ureteropelvi c junction calculus results in moderate hydronephrosis. Multiple small calculi within lower pole of t he left kidney are noted. There are no right ureteral calculi. There is no right hydronephrosis. Eval uation of the remainder of the abdomen and pelvis is suboptimal on this unenhanced exam. There is a F oley balloon within the bladder. There is minimal infiltration within the cholecystectomy bed. There is no biliary ductal dilatation. Hepatic steatosis is noted. Left perinephric stranding is noted. The re is no evidence for acute appendicitis. Sigmoid diverticulosis is noted without evidence for acute diverticulitis. There is no evidence for a bowel obstruction. No acute fracture or suspicious lesion is identified within visualized skeletal structures. IMPRESSION: 1. 1.2 x 0.8 cm left ureteropelvic junction calculus which results in moderate left hydronephrosis. 2. Left-sided nephrolithiasis. 3. Hepatic steatosis. 4. Colonic diverticulosis without evidence for acute diverticulitis. ACT 112: Negative or not required by law. Electronically signed by: Mumtaz Delaney M.D. 04/01/2021 9:21 AM
[2021-04-01] MEDS: PIPERACILLIN/TAZOBACTAM 4.5 GM in DEXTROSE 5% 100 ML IV SCH ×2 (09:24→22:17)
--- NOTE | 2021-04-01 09:39 | Electrocardiogram Report ---
Test Reason : Blood Pressure : / mmHG Vent. Rate : 110 BPM Atrial Rate : 110 BPM P-R Int : 114 ms QRS Dur : 080 ms QT Int : 332 ms P-R-T Axes : 033 -01 029 degrees QTc Int : 449 ms Sinus tachycardia Nonspecific ST abnormality Abnormal ECG When compared with ECG of 16-AUG-2011 11:31, Vent. rate has increased BY 44 BPM Confirmed by Cody Joyce ([id number]) on 04/01/2021 9:39:28 AM Referred By: REFERRED SELF Confirmed By:Jason Joyce
[2021-04-01] MEDS: MAGNESIUM SULFATE / D5W 1 GM/100 ML BAG IV SCH ×2 (10:06→11:55)
[2021-04-01] MEDS: LACTATED RINGER'S 1,000 ML IV SCH ×2 (10:06→22:26)
[2021-04-01] MEDS ORDERED: LIDOCAINE 2% 2 ML VIAL/AMP(20MG/ML) INFIL ONE (10:32)
[2021-04-01] MEDS ORDERED: MIDAZOLAM HCL 1 MG/ML 2ML VIAL ONE (10:32)
[2021-04-01] MEDS ORDERED: PROPOFOL IV EMULSION 10 MG/ML 20 ML VIAL IV ONE (10:32)
[2021-04-01] MEDS ORDERED: fentaNYL citrate 100 MCG/2 ML VIAL ONE (10:32)
[2021-04-01] MEDS ORDERED: GLUCOSE 40% GEL 15 GM TUBE PO PRN (10:45)
[2021-04-01] MEDS ORDERED: GLUCOSE 10 TABS/TUBE PO PRN (10:45)
[2021-04-01] MEDS ORDERED: DEXTROSE 50% 50 ML SYRINGE IV PRN (10:45)
[2021-04-01] MEDS ORDERED: CARBOHYDRATES FOR HYPOGLYCEMIA PO PRN (10:45)
[2021-04-01] MEDS ORDERED: GLUCAGON FOR INJ 1 MG VIAL IM PRN (10:45)
[2021-04-01] MEDS ORDERED: ePHEDrine sulfate 50 MG/ML AMP IV PRN ×2 (10:49→13:46)
[2021-04-01] MEDS ORDERED: ATROPINE SULFATE 0.1 MG/ML 10ML SYR IV PRN ×2 (10:49→13:46)
[2021-04-01] MEDS ORDERED: NALOXONE HCL 0.4 MG/1 ML VIAL/CARP IV PRN (10:49)
[2021-04-01] MEDS ORDERED: PROMETHAZINE HCL 12.5 MG in SODIUM CHLORIDE 0.9% 50 ML IV PRN (10:49)
[2021-04-01] MEDS ORDERED: LABETALOL HCL IV 5 MG/ML 20ML IV PRN (10:49)
[2021-04-01] MEDS ORDERED: fentaNYL citrate 100 MCG/2 ML VIAL IV PRN (10:49)
[2021-04-01] MEDS ORDERED: FLUMAZENIL 0.1 MG/1 ML 10 ML VIAL IV PRN (10:49)
[2021-04-01] MEDS ORDERED: KETAMINE 50 MG/5 ML SYRINGE ONE (11:33)
[2021-04-01 11:42] LABS: Estimated Average Glucose 131 mg/dl; Hemoglobin A1C 6.2 % (4.5-5.6)
[2021-04-01] MEDS: INSULIN ASPART 100 UNITS/ML 3 ML PEN SC SCH ×4 (11:56→23:59)
--- NOTE | 2021-04-01 12:50 | Post Operative Brief Note ---
PG Immediate Post Op with CF Date of Surgery April 01, 2021 Pre & Post Diagnosis Operation Date: 04/01/21 10:10 Pre-Op Diagnosis: Hydronephrosis with obstructing calculus, acute kidney injury, septic shock Post-Op Diagnosis: Hydronephrosis with obstructing calculus, acute kidney injury, septic shock I identified the patient and participated in the time-out.: Yes Procedure Operation Date: 04/01/21 10:10 Actual Procedures p Cystoscopy, Left Retrograde Pyelogram, Left Ureteral Stent Placement(Left) - Ricky Reynoso MD Surgeon Ricky Reynoso MD Nature Photographer none Estimated Blood Loss 0 Findings Consistent with Post-Op Diagnosis Specimens Specimen Description: None per surgeon Drains Chen Catheter
[2021-04-01] MEDS ORDERED: DIATRIZOATE MEGLUMINE 30% 100ML VIAL INSTIL ONE (12:51)
--- NOTE | 2021-04-01 13:18 | Fluoroscopy Report ---
FL retrograde includes kub CLINICAL HISTORY: Left ureteral stent placement. COMPARISON STUDY: None. FLUOROSCOPY TIME: 44 seconds. FINDINGS: 3 fluoroscopic spot images of the abdomen demonstrate retrograde opacification of the left ureter and renal collecting system followed by placement of a left ureteral stent. Only the proximal portion of the left ureteral stent is identified and appears in good position. IMPRESSION: Fluoroscopy provided for left ureteral stent placement. ACT 112: Negative or not required by law. Electronically signed by: Mark Doan M.D. 04/01/2021 1:16 PM
--- NOTE | 2021-04-01 13:48 | Anesthesiology Progress Note ---
Date of Service April 01, 2021 Anesthesia Post Procedure Vital Signs Vital Signs: Temp Pulse Pulse Resp BP BP Pulse Ox 04/01/21 13:30 90 22 96/69 L 93 04/01/21 13:20 90 17 110/69 93 04/01/21 13:15 93 H 21 96 04/01/21 13:10 36.8 C 94 H 94 H 17 114/69 114/69 95 04/01/21 13:06 100 H 19 123/75 96 04/01/21 13:02 105 H 17 96 04/01/21 13:00 36.6 C 108 H 101 H 17 122/78 122/78 95 04/01/21 12:59 110 H 18 145/80 H 95 04/01/21 12:57 111 H 19 174/93 H 93 04/01/21 12:00 37.4 C 90 38 H 98 04/01/21 11:58 37.4 C 96 H 32 H 131/73 98 04/01/21 11:45 37.4 C 86 30 H 97 04/01/21 11:43 37.4 C 88 31 H 109/69 98 04/01/21 11:30 37.4 C 89 27 H 97 04/01/21 11:28 37.4 C 89 23 115/74 97 04/01/21 11:15 37.4 C 89 30 H 97 04/01/21 11:13 37.4 C 88 34 H 112/76 97 04/01/21 11:00 37.4 C 89 25 H 98 04/01/21 10:58 37.4 C 84 27 H 100/68 98 04/01/21 10:45 37.4 C 87 27 H 97 04/01/21 10:43 37.4 C 87 25 H 109/67 98 04/01/21 10:30 37.4 C 82 26 H 97 04/01/21 10:28 37.4 C 86 25 H 103/64 96 04/01/21 10:15 37.5 C 88 33 H 97 04/01/21 10:13 37.5 C 89 28 H 94/76 L 98 04/01/21 10:00 37.4 C 85 18 97 04/01/21 09:58 37.4 C 85 23 104/64 97 04/01/21 09:45 37.4 C 90 25 H 98 04/01/21 09:43 37.4 C 89 34 H 103/73 97 04/01/21 09:30 37.4 C 90 31 H 97 04/01/21 09:29 37.4 C 85 29 H 97 04/01/21 09:28 37.4 C 88 34 H 108/75 97 04/01/21 09:15 37.4 C 89 27 H 97 04/01/21 09:13 37.4 C 88 36 H 106/79 98 04/01/21 09:00 37.4 C 88 31 H 97 04/01/21 08:58 37.4 C 88 39 H 100/71 98 04/01/21 08:45 37.4 C 89 22 98 04/01/21 08:43 37.5 C 84 26 H 103/65 98 04/01/21 08:30 37.4 C 86 24 98 04/01/21 08:28 37.4 C 87 29 H 112/66 98 04/01/21 08:15 37.4 C 88 32 H 97 04/01/21 08:13 37.4 C 87 31 H 96/66 L 97 04/01/21 08:00 37.5 C 80 28 H 98 04/01/21 07:58 37.5 C 93 H 29 H 111/74 97 04/01/21 07:45 37.5 C 89 30 H 96 04/01/21 07:43 37.5 C 91 H 44 H 103/77 98 04/01/21 07:31 37.4 C 88 33 H 95 04/01/21 07:29 37.4 C 88 31 H 102/70 97 04/01/21 07:27 90 04/01/21 07:15 37.4 C 90 27 H 97 04/01/21 07:13 37.4 C 93 H 34 H 98/75 L 96 04/01/21 07:01 37.4 C 94 H 32 H 97 04/01/21 06:59 37.4 C 94 H 36 H 97/67 L 97 04/01/21 06:58 37.4 C 83 18 79/62 L 97 04/01/21 06:45 37.4 C 94 H 28 H 97 04/01/21 06:43 37.4 C 93 H 28 H 82/66 L 96 04/01/21 06:30 37.4 C 93 H 27 H 97 04/01/21 06:28 37.4 C 92 H 29 H 93/57 L 96 04/01/21 06:15 37.4 C 96 H 26 H 95 04/01/21 06:13 37.4 C 97 H 27 H 96/62 L 96 04/01/21 06:02 103 H 04/01/21 06:00 37.4 C 98 H 19 95 04/01/21 05:58 37.5 C 101 H 29 H 93/66 L 97 04/01/21 05:45 37.6 C H 102 H 27 H 97 04/01/21 05:44 37.6 C H 101 H 28 H 96 04/01/21 05:43 37.6 C H 102 H 29 H 86/60 L 96 04/01/21 05:30 37.6 C H 103 H 25 H 95 04/01/21 05:29 37.8 C H 106 H 25 H 81/63 L 95 04/01/21 05:28 37.6 C H 103 H 31 H 92/65 L 97 04/01/21 05:13 37.7 C H 102 H 22 81/61 L 95 04/01/21 05:00 37.8 C H 106 H 23 95 04/01/21 04:58 37.8 C H 106 H 19 81/63 L 95 04/01/21 04:51 106 H 11 L 04/01/21 04:20 106 H 34 H 83/60 L 95 04/01/21 04:00 102 H 25 H 82/56 L 95 04/01/21 03:55 105 H 27 H 79/52 L 96 04/01/21 03:50 105 H 31 H 82/55 L 96 04/01/21 03:48 102 H 24 93/51 L 96 04/01/21 03:45 102 H 25 H 82/58 L 96 04/01/21 03:43 104 H 27 H 83/55 L 95 04/01/21 03:40 104 H 31 H 86/29 L 95 04/01/21 03:35 103 H 38 H 85/52 L 95 04/01/21 03:30 105 H 27 H 92/52 L 95 04/01/21 03:25 108 H 36 H 81/52 L 94 04/01/21 03:21 109 H 31 H 95 04/01/21 03:20 106 H 25 H 69/46 L 95 04/01/21 03:16 108 H 40 H 95 04/01/21 03:15 107 H 30 H 77/46 L 95 04/01/21 03:11 107 H 25 H 96 04/01/21 03:10 107 H 36 H 72/45 L 95 04/01/21 03:06 106 H 49 H 96 04/01/21 03:05 105 H 30 H 68/47 L 96 04/01/21 03:04 93 H 30 H 74/50 L 95 04/01/21 03:02 105 H 26 H 79/52 L 95 04/01/21 03:01 104 H 29 H 96 04/01/21 03:00 105 H 33 H 69/52 L 04/01/21 02:55 104 H 26 H 04/01/21 02:50 104 H 28 H 04/01/21 02:49 106 H 29 H 04/01/21 02:48 101 H 28 H 04/01/21 02:47 101 H 33 H 04/01/21 02:46 102 H 26 H 04/01/21 02:45 104 H 30 H 84/49 L 04/01/21 02:44 102 H 30 H 04/01/21 02:43 103 H 32 H 04/01/21 02:42 106 H 27 H 04/01/21 02:41 106 H 25 H 04/01/21 02:40 107 H 25 H 73/51 L 04/01/21 02:39 106 H 29 H 04/01/21 02:38 108 H 27 H 04/01/21 02:37 107 H 28 H 04/01/21 02:36 107 H 35 H 95 04/01/21 02:35 110 H 31 H 85/51 L 96 04/01/21 02:34 108 H 26 H 96 04/01/21 02:33 109 H 34 H 96 04/01/21 02:32 110 H 31 H 65/40 L 95 04/01/21 02:31 101 H 31 H 04/01/21 02:30 109 H 34 H 79/42 L 95 04/01/21 02:29 109 H 26 H 72/44 L 95 04/01/21 02:28 109 H 32 H 66/42 L 96 04/01/21 02:27 110 H 26 H 04/01/21 02:26 112 H 31 H 04/01/21 02:25 110 H 37 H 04/01/21 02:24 112 H 38 H 04/01/21 02:23 111 H 29 H 04/01/21 02:22 111 H 32 H 04/01/21 02:21 111 H 32 H 04/01/21 02:20 110 H 23 04/01/21 02:19 110 H 27 H 04/01/21 02:18 109 H 35 H 04/01/21 02:17 111 H 39 H 04/01/21 02:16 110 H 33 H 04/01/21 02:15 109 H 29 H 04/01/21 02:14 110 H 24 04/01/21 02:13 80 24 04/01/21 02:12 109 H 30 H 04/01/21 02:06 111 H 30 H 04/01/21 02:00 113 H 31 H 103/63 04/01/21 01:13 38.5 C H 04/01/21 00:01 38.1 C H 130 H 30 H 152/70 H 94 Pain Intensity Bilateral Lower Back: Pain Intensity: 3 Transfer of Care Handoff Completed per policy Notes Mental Status: alert / awake / arousable Patient Amnestic to Procedure: Yes Nausea / Vomiting: adequately controlled Pain: adequately controlled Airway Patency, RR, SpO2: stable & adequate BP & HR: stable & adequate Hydration State: stable & adequate Anesthetic Complications: no major complications apparent
--- NOTE | 2021-04-01 14:17 | XCELERA ---
[id number]
[2021-04-01] MEDS ORDERED: NORMOSOL-R 500 ML IV ONE (17:33)
[2021-04-01] MEDS ORDERED: ICU ELECTROLYTE REPLACEMENT PROTOCOL SCH (18:00)
[2021-04-01] MEDS: ATORVASTATIN 20 MG TAB PO SCH (19:53)
--- NOTE | 2021-04-01 20:11 | Billing Data ---
Date of Service April 01, 2021 Coding Level of Care Code Critical Care 1st - mins
[2021-04-02] MEDS: INSULIN ASPART 100 UNITS/ML 3 ML PEN SC SCH ×4 (04:57→17:21)
--- NOTE | 2021-04-02 07:15 | Urology Progress Note ---
Date of Service April 02, 2021 Assessment & Plan (1) Hydronephrosis with obstructing calculus: (2) MISSAEL (acute kidney injury): (3) Septic shock: 65yo F admitted with sepsis secondary to an obstructing 13x8mm proximal left ureteral calculus with hydronephrosis. - Postop day #1 status post cystoscopy, left ureteral stent placement with Dr. Reynoso. - Patient is feeling well today, no complaints of pain. - Remains afebrile, VSS, non-toxic appearing. - Labs reviewed, Wbc up to 17.54 this morning and creatinine improved to 2.12 (3.8 on admission). - Urine and blood cultures preliminary gram negative bacilli, continues on IV Zosyn. - No further acute intervention warranted. - Continue supportive care and antibiotic therapy, follow cultures. - Will likely need prolonged course of antibiotic therapy of at least 10-14 days on discharge. - Will arrange outpatient follow-up with urology service for definitive stone treatment. - Expected clinical course reviewed with patient, all questions were answered. - Thank you for allowing us to participate in the acute care of Ms. Flores. - Please reconsult us with additional questions, concerns or changes in patient status. Admission and Anticipated Discharge Date Admission Date: April 01, 2021 Subjective Pt examined at bedside this AM. Awake, alert, sitting up in bed on arrival. She reports feeling much better today. She denies any back, flank, or suprapubic pain at this time. No fevers or chills. Tolerating PO diet, no nausea or vomiting. Chen catheter intact, draining clear, yellow urine. Ambulating without dizziness. Denies CP/SOB. Chart review: Afebrile Wbc 17.54 Hgb 11.2 Cr 2.12 Urine and blood cultures preliminary gram negative bacilli On IV Zosyn Review of Systems Constitutional: as per Subjective / HPI Gastrointestinal: as per Subjective / HPI Genitourinary: as per Subjective / HPI Physical Exam Constitutional: cooperative; no acute distress Respiratory: normal respiratory effort; no labored breathing and no audible wheezes Cardiovascular: Extremities: no calf tenderness Gastrointestinal (Abdomen): Percussion/Palpation: abdomen soft; abdomen nontender and no guarding Musculoskeletal: Head/Neck/Chest: normocephalic Skin: No visible rashes or lesions. Neurologic: moves all extremities and awake Psychiatric: A+Ox3, euthymic affect Genitourinary: no CVA tenderness Chen catheter intact Results & Data ([facility]) Vital Signs (Past 12 Hours) Vital Signs Temp Pulse Pulse Resp BP Pulse Ox 04/02/21 02:35 36.7 C 85 16 109/74 95 04/02/21 01:00 85 04/01/21 23:08 85 04/01/21 23:00 36.7 C 84 24 110/69 93 04/01/21 22:00 89 22 93/64 L 93 04/01/21 20:00 92 H 24 109/65 95 04/01/21 19:33 36.9 C 87 22 91/64 L 93 PG Care Time/CCT Total # of Minutes Spent Total Time Spent with Patient: Total time spent is greater than 50% in coordination of care (as documented) at patient's floor/unit and/or counseling patient: Coding Level of Care Code 84264 Subseq Hosp Care Lvl 2 Diagnoses Hydronephrosis with obstructing calculus N13.2 MISSAEL (acute kidney injury) N17.9 Septic shock A41.9; R65.21
[2021-04-02] MEDS: LACTATED RINGER'S 1,000 ML IV SCH ×2 (07:28→09:17)
[2021-04-02 07:37] LABS: Hematocrit (blood only) 34.1 % (37-47); Hemoglobin 11.2 g/dL (12.0-16.0); Mean Corpuscular Hemoglobin 30.7 pg (25-34); Mean Corpuscular Hgb Conc 32.8 g/dL (32-36); Mean Corpuscular Volume 93.4 fL (80-100); Mean Platelet Volume 12.1 fL (7.4-10.4); Platelet Count 73 K/uL (130-400); RDW Coefficient of Variation 15.3 % (11.5-14.5); RDW Standard Deviation 52.9 fL (36.4-46.3); Red Blood Count 3.65 M/uL (4.2-5.4); White Blood Count 17.54 K/uL (4.8-10.8)
[2021-04-02 07:39] LABS: Albumin Level 2.3 gm/dl (3.4-5.0); Calcium 7.6 mg/dl (8.5-10.1); Creatinine Clr Calc Pharmacy 30.7 ml/min; Est GFR (African American) 27.2 ml/min; Est GFR (Non-African American) 23.5 ml/min; Magnesium 2.6 mg/dl (1.8-2.4); Potassium 3.4 mmol/L (3.5-5.1)
--- NOTE | 2021-04-02 07:41 | Hospitalist Progress Note ---
Date of Service April 02, 2021 Assessment & Plan (1) Septic shock: 65yo F admitted with septic shock secondary to an obstructing proximal left ureteral calculus with hydronephrosis. - CTAP remarkable for an obstructing proximal left ureteral stone with hydronephrosis -she is leukopenic and is still requiring pressors, Dr. Reynoso, on-call urologist did cysto and left ureteral stent placement - Vanco discontinued and IV Zosyn continued for gram-negative bacteria status. Covid test negative, lyme and anaplasmosis negative . - cultures show pansensitive E. coli we will transition to ceftriaxone (2) Cardiomyopathy: Patient had elevation of troponin which is felt to be due to demand ischemia from sepsis and decreased perfusion with lower blood pressure. However she had some sinus pauses noted and an echocardiogram was performed showing e jection fraction to be 25 to 30% with global hypokinesis. Exact etiology of her cardiomyopathy is undetermined at this point time but may be related to her septic event. She has no preceding hospital symptoms such as chest pain or dyspnea on exertion which is accelerated. She was seen by cardiology and she will be placed on an aspirin a day beta-dewayne therapy and once renal function improves hopefully add in GRECIA inhibitor or ARB with cardiology follow-up as an outpatient (3) Elevated troponin: Mills secondary to demand ischemia we will recheck on 04/03, echocardiogram performed reduced LV function with moderate MR although elevated pressures EF estimated 25 to 30%. Is on aspirin atorvastatin will start low-dose carvedilol have cardiology consul tation given the cardiomyopathy seen (4) Acute renal failure: Resolving secondary to obstructive uropathy and ATN hopefully to improve (5) Lactic acidosis: From shock present on admission resolving (6) Transaminitis: Tribute to be secondary to shock liver (7) DVT prophylaxis: Heparin for DVT prevention Admission and Anticipated Discharge Date Admission Date: April 01, 2021 Subjective Patient appears returning to baseline she still slightly weakened. She has no chest pain or shortness of breath she is improving with her strength every day. She is having occasional sinus pauses without symptoms these are noted on the wool cleaner and they occurred even prior to starting beta-dewayne therapy Review of Systems Review of Systems: Mild distress and fatigue no headache, no visual changes no speech or swallowing issues no chest pain, pressure or palpitations no shortness of breath, cough or wheezes Abdominal pain is improved posadsa catheter will be removed no focal joint pain or swelling no back pain, CVA tenderness or radicular pain no bruising, bleeding or rashes no focal signs of weakness or numbness or altered sensation no complaints of anxiety or depression.. Physical Exam Physical Exam: The patient appeared well nourished and normally developed. Vital signs as documented. Head exam is normocephalic atraumatic Neck is without JVD, thyromegaly, or carotid bruits. Lungs are clear to auscultation, no focal loss of breath sounds Cardiac exam, Rhythm is tachycardic but regular.. No murmurs, rubs or gallops. Abdominal exam reveals a minor left-sided tenderness no significant rebound or guarding Extremities are nonedematous and both pedal pulses are present Neurologic exam is alert and oriented, no focal loss of strength or sensation Skin is without bruises or rashes Psychologically is without concerns for anxiety or depression Results & Data Results & Data ([facility]) Vital Signs (Past 12 Hours) Vital Signs Temp Pulse Pulse Resp BP Pulse Ox 04/02/21 02:35 98.1 F 85 16 109/74 95 04/02/21 01:00 85 04/01/21 23:08 85 04/01/21 23:00 98.1 F 84 24 110/69 93 04/01/21 22:00 89 22 93/64 L 93 04/01/21 20:00 92 H 24 109/65 95 PG Care Time/CCT Total # of Minutes Spent Total Time Spent with Patient: Total time spent is greater than 50% in coordination of care (as documented) at patient's floor/unit and/or counseling patient: Coding Level of Care Code 72531 Subseq Hosp Care Lvl 3 Diagnoses Septic shock A41.9; R65.21 Cardiomyopathy I42.9 Elevated troponin R77.8 Acute renal failure N17.9 Acute renal failure type: unspecified Lactic acidosis E87.2 Transaminitis R74.01 DVT prophylaxis Z29.9 (1) Acute renal failure Acute renal failure type: unspecified Qualified Code(s): N17.9 - Acute kidney failure, unspecified
[2021-04-02 07:42] LABS: Albumin Globulin Ratio 0.7 (0.9-2); Bilirubin,Total 1.3 mg/dl (0.2-1); Globulin 3.2 gm/dl (2.5-4.0); Total Protein 5.5 gm/dl (6.4-8.2)
--- NOTE | 2021-04-02 08:05 | Operative Report (OR) ---
DATE OF PROCEDURE: 04/01/2021 PROCEDURE PERFORMED: Cystoscopy and left stent placement. PREOPERATIVE DIAGNOSIS: Septic shock with obstructing proximal renal calculus. HISTORY OF PRESENTATION: The patient is a 65-year-old female with a previous history of stones who pr esented with flank pain, in septic shock. She was found to have a proximal left ureteral obstructing stone and was in the ICU when we were consulted. We elected to bring her to the operating room. Rosie guerra had eaten at the time of our consult, so we delayed the procedure for several hours to allow her to digest her food at the recommendation of anesthesia. DESCRIPTION OF PROCEDURE: The patient was taken to the cysto suite where she was given sedation. Rosie guerra was placed in the dorsal lithotomy position and prepped and draped in the usual sterile fashion. S he had been given antibiotics preoperatively. A 22-Ugandan cystoscope was passed per urethra. Of not e, the patient did have a rectocele, which made viewing the meatus somewhat difficult. Once the scop e was in the bladder, the left ureteral orifice was cannulated with a 5-Ugandan open-ended catheter an d a retrograde was performed to identify the renal pelvis. A dual flex guidewire was passed through the 5-Ugandan open-ended catheter beyond the stone into the proximal kidney and a 4.8-Ugandan 24 cm kimi nt was passed over the catheter, but appeared to be in the proximal ureter as opposed to the renal pe lvis. Because of this, I removed that stent, replaced the guidewire and passed a 4.8, 26 cm stent, w hich appeared to be in the renal pelvis. The [facility] Of note, a Chen catheter was placed prior to her being transferred to the ICU. Job ID: [id number]
[2021-04-02 08:11] LABS: Basophils # (auto) 0.01 K/uL (0-0.2); Basophils % (auto) 0.1 %; Dohle Bodies 1+; Echinocytes 1+; Immature Granulocytes # (auto) 0.45 K/uL (0.00-0.02); Immature Granulocytes % (auto) 2.6 %; Lymphocytes # (auto) 1.06 K/uL (1.2-3.4); Monocytes # (auto) 0.47 K/uL (0.11-0.59); Monocytes % (auto) 2.7 %; Neutrophils # (auto) 15.55 K/uL (1.4-6.5); Neutrophils % (auto) 88.6 %; Toxic Granulation 1+; Toxic Vacuolation 1+
[2021-04-02] MEDS ORDERED: POTASSIUM CHLORIDE CRTAB 20 MEQ TABCR PO STA (08:21)
[2021-04-02] MEDS: ASPIRIN 81 MG ECTAB PO SCH (09:14)
[2021-04-02] MEDS: PIPERACILLIN/TAZOBACTAM 4.5 GM in DEXTROSE 5% 100 ML IV SCH ×2 (10:35→18:28)
[2021-04-02] MEDS ORDERED: Nursing to Pharmacy Communication SCH (19:00)
[2021-04-02] MEDS: ATORVASTATIN 20 MG TAB PO SCH (20:24)
[2021-04-02] MEDS: carvediloL 3.125 MG TAB PO SCH (22:47)
[2021-04-03] MEDS: PIPERACILLIN/TAZOBACTAM 4.5 GM in DEXTROSE 5% 100 ML IV SCH ×3 (02:50→17:59)
[2021-04-03 06:43] LABS: Albumin Level 2.1 gm/dl (3.4-5.0); BUN Creatinine Ratio 23.5 (10-20); Calcium 7.7 mg/dl (8.5-10.1); Est GFR (African American) 41.4 ml/min; Est GFR (Non-African American) 35.7 ml/min; Magnesium 2.5 mg/dl (1.8-2.4); Potassium 3.4 mmol/L (3.5-5.1)
[2021-04-03 06:45] LABS: Hematocrit (blood only) 33.3 % (37-47); Mean Corpuscular Hemoglobin 30.9 pg (25-34); Mean Corpuscular Volume 93.5 fL (80-100); Mean Platelet Volume 12.4 fL (7.4-10.4); Nucleated RBC # (auto) 0.02 K/uL (0-0); Nucleated RBC % (auto) 0.1 %; Platelet Count 79 K/uL (130-400); RDW Coefficient of Variation 15.3 % (11.5-14.5); RDW Standard Deviation 52.2 fL (36.4-46.3); Red Blood Count 3.56 M/uL (4.2-5.4); White Blood Count 15.11 K/uL (4.8-10.8)
[2021-04-03 06:46] LABS: Basophils # (auto) 0.01 K/uL (0-0.2); Basophils % (auto) 0.1 %; Dohle Bodies 1+; Echinocytes 1+; Eosinophils # (auto) 0.12 K/uL (0-0.5); Eosinophils % (auto) 0.8 %; Immature Granulocytes # (auto) 0.16 K/uL (0.00-0.02); Immature Granulocytes % (auto) 1.1 %; Lymphocytes # (auto) 1.43 K/uL (1.2-3.4); Lymphocytes % (auto) 9.5 %; Monocytes # (auto) 0.69 K/uL (0.11-0.59); Monocytes % (auto) 4.6 %; Neutrophils % (auto) 83.9 %; Toxic Granulation 1+
[2021-04-03 06:55] LABS: Albumin Globulin Ratio 0.7 (0.9-2); Bilirubin,Total 0.9 mg/dl (0.2-1); Globulin 3.1 gm/dl (2.5-4.0); Total Protein 5.2 gm/dl (6.4-8.2); Troponin I 0.104 ng/ml (0-0.045)
[2021-04-03] MEDS: ASPIRIN 81 MG ECTAB PO SCH (08:33)
[2021-04-03] MEDS: carvediloL 3.125 MG TAB PO SCH (08:33)
[2021-04-03] MEDS ORDERED: carvediloL 3.125 MG TAB PO ONE (08:45)
[2021-04-03] MEDS ORDERED: POTASSIUM CHLORIDE CRTAB 20 MEQ TABCR PO SCH (09:00)
--- NOTE | 2021-04-03 15:40 | Cardiology Consultation ---
Date of Consultation April 03, 2021 Assessment & Plan (1) Nonischemic cardiomyopathy: Echo performed 04/02/21 with findings of severely reduced LVEF (25-30%), mild to mod MR, elevated RV systolic pressure, and severe global hypokinesis of the left ventricle. On discussion with patient today, patient reports being essentially asymptomatic from a cardiovascular standpoint. She denies CP, SOB, orthopnea, lightheadedness, dizziness, tachycardia, or palpitations. Patient is not very active but denies WEBSTER. There are no previous studies so it is difficult to know how acute these findings are. Do not suspect ACS at this time. It will be important to see how the patient feels with exertion and ambulation prior to consideration of discharge home. May consider nuclear imaging for further evaluation. Agree with continuing Carvedilol 6.25mg po BID. Once kidney function improves, can also consider starting OLE-I. Recommend outpatient sleep study for evaluation of KYLE. Will continue to follow patient during hospitalization. After discharge, will continue to follow with this patient in the outpatient setting. Supervising Physician Co-Signing Physician Notes I saw and examined the patient with Dr. Gambino and agree with the findings noted above. Briefly, the patient was admitted with sepsis related to obstructive uropathy. Clinically much improved. Mildly elevated biomarkers at the time of admission likely related to hypotension. She was discovered to have severely reduced LV systolic function in a pattern most consistent with a nonischemic cardiomyopathy. At this point we elected to provide supportive therapy in standard treatment for cardiomyopathy. We will see how she tolerates beta- blockade an Ole inhibition. In the absence of significant symptoms or decompensation we can reassess her LV function in the outpatient setting and decide if an ischemic evaluation is warranted at some point. History of Present Illness Attending Physician: Rodolfo Arce MD History of Present Illness Mrs. Evon Flores is a 65 yo female with PMHx of hyperlipidemia and GERD who presented to the hospital in septic shock secondary to an obstructing proximal left ureteral calculus with hydronephrosis. Patient initially developed chills/fevers and left low back pain on Tuesday (4 days ago) before she presented to the hospital. She was found to be profoundly hypotensive and required vasopressor support. Patient is also on IV Zosyn. Troponin elevated with peak of 1.35, now 0.104. Echo performed 04/02/21 with findings of severely reduced LVEF (25-30%), mild to mod MR, elevated RV systolic pressure, and severe global hypokinesis of the left ventricle. Patient was seen and evaluated at beside this afternoon. She reports feeling overall slightly better but with increased weakness and fatigue today. Patient states that she is typically fairly sedentary and that most activity comes from housework (e.g. carrying the laundry basket through the house and cleaning). Patient and do live in a double-wide trailer with ~4 steps to get into the house. She denies any history of CP or SOB with those stairs or activity in the house. No CP or SOB at rest. Patient sleeps with one pillow and denies orthopnea; does note that patient snores but patient does not wake up from sleep due to SOB. No hx of lightheadedness, dizziness, tachycardia, or palpitations. She does note some mild b/l LE swelling that has been worsening over the past few weeks; the swelling reportedly improves overnight while sleeping. Allergies Allergy/AdvReac Type Severity Reaction Status Date / Time hydrocodone Allergy Unknown Rash Verified 04/01/21 00:42 Home Medications Medication Instructions Recorded Confirmed Type aspirin 81 mg PO DAILY 05/25/19 04/01/21 History atorvastatin 20 mg tablet 20 mg PO HS #90 tab 11/10/20 04/01/21 Rx Patient History Medical History Acute bronchitis with bronchospasm Biliary dyskinesia Gastroesophageal reflux disease Hypercholesteremia Hyperlipidemia Impaired fasting glucose Kidney stones Surgical History History of cholecystectomy History of esophagogastroduodenoscopy (EGD) History of hysterectomy Hx of cataract surgery LEFT Family History Mother Diabetes Sister Cancer Denies family history of Ovarian cancer Prostate cancer Myocardial infarction Breast cancer Colorectal cancer Social History Smoking Status: Former smoker Tobacco Type: Cigarettes Age Started Using Tobacco: 14; Age Quit Using Tobacco: 45; packs per day: 0.75; Smoking End Date: 20 yrs ago; Second Hand Exposure: No; Hx Alcohol Use: Yes Alcohol type: other Alcohol Intake Frequency: 2-4 x/Month Hx Substance Use: No Preferred Language: Mongolian Communication Ability: Effective Visual Impairment: No Limitations Hearing Ability: Hard of Hearing [employer] Buffer Required: No Beliefs That Will Affect Care: None marital status: Current Living Situation: Spouse current occupational status: retired 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 [employer] Other Information That Helps Us Care for You: No Feels Safe at Home: Yes Safety Concerns: Feels Safe At This Time Childhood Exposure to Second-Hand Smoke: No Dental Care, Regularly: No Physical Activity Frequency: Does not Exercise Seatbelt Use: always Sunscreen Use: No Assistive Devices: Denture - Upper and Denture - Lower Review of Systems Constitutional: + fatigue See HPI Respiratory: no cough, no dyspnea, no dyspnea on exertion and no pain on inspiration Cardiovascular: + edema; no chest pain, no dyspnea on exertion, no orthopnea, no palpitations and no lightheadedness Gastrointestinal: no abdominal pain, no nausea and no vomiting Genitourinary: no dysuria and no hematuria Neurologic: no dizziness and no headache(s) Physical Exam Physical Exam: GENERAL: Appears fatigued but in no acute distress. Well developed and well nourished. Vital signs reviewed. EYES: EOMI. Anicteric sclerae. HENT: Moist mucous membranes. RESPIRATORY: Clear to auscultation bilaterally. No wheezing, rales, or rhonchi. CARDIOVASCULAR: Regular rate and rhythm. No murmurs. No JVD. No carotid bruits. 2+ pedal pulses bilaterally. ABDOMEN: Soft, non-tender and non-distended. Normal bowel sounds. EXTREMITIES: 1+ bilateral lower extremity edema to mid salgado. Non-tender. SKIN: Warm, dry. NEUROLOGIC: A/O x3. No focal neurological deficits. PSYCHIATRIC: Cooperative. Appropriate mood and affect. Results & Data ([facility]) Vital Signs (Past 12 Hours) Vital Signs Temp Pulse Pulse Resp BP Pulse Ox 04/03/21 15:07 36.8 C 77 19 124/66 94 04/03/21 11:00 36.5 C 99 H 16 130/65 98 04/03/21 08:00 89 04/03/21 07:50 36.4 C L 96 H 20 146/71 H 99 04/03/21 04:08 36.8 C 82 22 125/80 95 PG Care Time/CCT Total # of Minutes Spent Total Time Spent with Patient: Total time spent is greater than 50% in coordination of care (as documented) at patient's floor/unit and/or counseling patient: Coding Level of Care Code 28668 Initial Inpt Care Lvl 3 Diagnoses Nonischemic cardiomyopathy I42.8 Resident Activity Tracking Resident Involvement: Resident Care Provided Care Provided: Adult Hospital Medicine
[2021-04-03] MEDS: ATORVASTATIN 20 MG TAB PO SCH (20:11)
[2021-04-03] MEDS: carvediloL 6.25 MG TAB PO SCH (20:12)
[2021-04-04] MEDS: PIPERACILLIN/TAZOBACTAM 4.5 GM in DEXTROSE 5% 100 ML IV SCH ×2 (05:42→10:23)
[2021-04-04 07:27] LABS: Hematocrit (blood only) 33.2 % (37-47); Hemoglobin 10.9 g/dL (12.0-16.0); Mean Corpuscular Hemoglobin 30.6 pg (25-34); Mean Corpuscular Hgb Conc 32.8 g/dL (32-36); Mean Corpuscular Volume 93.3 fL (80-100); Platelet Count 84 K/uL (130-400); RDW Coefficient of Variation 15.4 % (11.5-14.5); RDW Standard Deviation 52.9 fL (36.4-46.3); Red Blood Count 3.56 M/uL (4.2-5.4); White Blood Count 8.31 K/uL (4.8-10.8)
[2021-04-04 07:50] LABS: ALC (manual) 0.93 K/uL (1.2-3.4); ANC (manual) 6.52 K/uL (1.4-6.5); Basophils # (manual) 0.07 K/uL (0-0.2); Basophils % (manual) 0.9 %; Eosinophils # (manual) 0.14 K/uL (0-0.5); Eosinophils % (manual) 1.7 %; Lymphocytes # (manual) 0.93 K/uL (1.2-3.4); Lymphocytes % (manual) 11.2 %; Monocytes # (manual) 0.65 K/uL (0.11-0.59); Monocytes % (manual) 7.8 %; Neutrophils # (manual) 6.52 K/uL (1.4-6.5); Neutrophils % (manual) 78.4 %
[2021-04-04 07:51] LABS: Albumin Level 2.3 gm/dl (3.4-5.0); BUN Creatinine Ratio 23.3 (10-20); Calcium 7.7 mg/dl (8.5-10.1); Creatinine Clr Calc Pharmacy 54.7 ml/min; Est GFR (African American) 55.3 ml/min; Est GFR (Non-African American) 47.7 ml/min; Potassium 3.7 mmol/L (3.5-5.1)
[2021-04-04 07:54] LABS: Albumin Globulin Ratio 0.8 (0.9-2); Total Protein 5.3 gm/dl (6.4-8.2)
[2021-04-04] MEDS: carvediloL 6.25 MG TAB PO SCH ×2 (08:27→20:13)
[2021-04-04] MEDS: ASPIRIN 81 MG ECTAB PO SCH (08:27)
--- NOTE | 2021-04-04 10:13 | Cardiology Progress Note ---
Date of Service April 04, 2021 Assessment & Plan (1) Cardiomyopathy: Unclear etiology. No overt symptoms of ischemia. Possibly related to her acute illness. In any event, she does not appear to have decompensated heart failure. We will treat her with standard therapy to include beta blockade and Ole inhibitors. She does have occasional pauses. Unclear this is exacerbated by carvedilol. My assessment is that most of these occur while she is sleeping or resting. Often times will see rhythms of this nature with sleep apnea. She has not had symptoms. Think we will have her ambulate today and see how she feels on her medical therapy. If she tolerates carvedilol and low-dose OLE- inhibitor she could likely be discharged with follow-up in the outpatient setting. If she cannot tolerate the medications or appears to have more significant conduction disease, I think we can do a limited echocardiogram to see if her function has improved even in the past few days. Clinically of course she is much improved. (2) Elevated troponin: I do not believe this represented an acute coronary syndrome. Likely related to her significant hypotension at the time of presentation (i.e. demand ischemia) (3) MISSAEL (acute kidney injury): Resolved. I think we may have an opportunity to start Ole inhibition given her poor LV function. (4) Mitral regurgitation: Mild to moderate. Possibly related to her poor LV function. This can be monitored over time. Admission and Anticipated Discharge Date Admission Date: April 01, 2021 Subjective This morning the patient claims to be feeling well. She has not done much ambulation, but was up to the commode. She did not report dizziness, lightheadedness or breathing difficulty. No symptoms of chest pain. No palpitations. Review of Systems Review of Systems: Per HPI Physical Exam Physical Exam: She is alert and oriented x3. Mood affect appear normal. She answered all questions appropriately. HEENT: Sclerae are anicteric. Pupils are equal and reactive to light and accommodation. Extraocular movements were intact. Neuro: Cranial nerves intact Lungs: Lungs are clear to auscultation bilaterally. There are no rales wheezes or rhonchi. She has normal respiratory effort without use of accessory muscles. There is normal pulmonary excursion. Cardiac: The rhythm was regular. S1 and S2 were normal. There are no murmurs on examination. The PMI was not markedly displaced on palpation. Abdomen: Obese Extremities: Patient has bilateral radial pulses that are equal in intensity. There is no evidence cyanosis or clubbing. There was no evidence of significant peripheral edema bilaterally. Skin: There are no rashes noted on examination today. Results & Data ([facility]) Vital Signs (Past 12 Hours) Vital Signs Temp Pulse Pulse Resp BP Pulse Ox 04/04/21 07:15 69 04/04/21 07:10 37.1 C 71 20 120/81 94 04/04/21 03:42 36.9 C 67 20 117/69 95 04/04/21 00:00 70 04/03/21 23:44 36.9 C 73 16 99/65 L 94 Laboratory Results Abnormal Lab Results 04/01/21 04/04/21 04/04/21 00:23 06:39 06:39 WBC 8.31 RBC 3.56 L Hgb 10.9 L Hct 33.2 L MCV 93.3 MCH 30.6 MCHC 32.8 RDW Std Deviation 52.9 H RDW Coeff of [place] 15.4 H Plt Count 84 L MPV 12.0 H Neutrophils % (Manual) 78.4 Lymphocytes % (Manual) 11.2 Monocytes % (Manual) 7.8 Eosinophils % (Manual) 1.7 Basophils % (Manual) 0.9 Neutrophils # (Manual) 6.52 H Total Absolute Neuts 6.52 H Lymphocytes # (Manual) 0.93 L Total Abs Lymphocytes 0.93 L Monocytes # (Manual) 0.65 H Eosinophils # (Manual) 0.14 Basophils # (Manual) 0.07 Sodium 142 Potassium 3.7 Chloride 111 H Carbon Dioxide 22 Anion Gap 9.0 BUN 28 H Creatinine 1.18 D Est Cr Clr Drug Dosing 54.7 Est GFR ( Amer) 55.3 Est GFR (Non-Af Amer) 47.7 BUN/Creatinine Ratio 23.3 H Glucose 89 Calcium 7.7 L Total Bilirubin 1.0 AST 22 ALT 51 Alkaline Phosphatase 197 H Total Protein 5.3 L Albumin 2.3 L Globulin 3.0 Albumin/Globulin Ratio 0.8 L A. phagocytophilum DNA Not Detected Diagnostic Findings Echocardiogram performed 04/01/2021: Severely reduced LV systolic function with ejection fraction of 25-30%. Mild RV dilation. Mild to moderate mitral regurgitation. PG Care Time/CCT Total # of Minutes Spent Total Time Spent with Patient: Total time spent is greater than 50% in coordination of care (as documented) at patient's floor/unit and/or counseling patient: Coding Level of Care Code 45593 Subseq Hosp Care Lvl 2 Diagnoses Cardiomyopathy I42.9 Elevated troponin R77.8 MISSAEL (acute kidney injury) N17.9 Mitral regurgitation I34.0
[2021-04-04] MEDS ORDERED: CEFDINIR 300 MG CAP PO SCH (11:00)
[2021-04-04] MEDS: lisinopril 2.5 MG TAB PO SCH (11:45)
--- NOTE | 2021-04-04 17:19 | Hospitalist Progress Note ---
Date of Service April 04, 2021 Assessment & Plan (1) Septic shock: 65yo F admitted with septic shock secondary to an obstructing proximal left ureteral calculus with hydronephrosis. Cultures revealed pansensitive E. coli also found within her blood - CTAP remarkable for an obstructing proximal left ureteral stone with hydronephrosis -she is leukopenic and is still requiring pressors, Dr. Reynoso, on-call urologist did cysto and left ureteral stent placement -Antibiotics D escalated to p.o. Cipro 500 twice daily for bacteremia will complete a 7-day course for gram-negative bacteremia Covid test negative, lyme and anaplasmosis negative . (2) Cardiomyopathy: Patient had elevation of troponin which is felt to be due to demand ischemia from sepsis and decreased perfusion with lower blood pressure. However she had some sinus pauses noted and an echocardiogram was performed showing ejection fraction to be 25 to 30% with global hypokinesis. Exact etiology of her cardiomyopathy is undetermined at this point time but may be related to her septic event. She has no preceding hospital symptoms such as chest pain or dyspnea on exertion which is accelerated. She was seen by cardiology and she will be placed on an aspirin a day beta-dewayne therapy and as renal function is improved added lisinopril 2.5 on 04/04 with escalation expected (3) Elevated troponin: [place] secondary to demand ischemia we will recheck on 04/03, echocardiogram performed reduced LV function with moderate MR although elevated pressures EF estimated 25 to 30%. Is on aspirin atorvastatin will start low-dose carvedilol have cardiology consultation given the cardiomyopathy seen (4) Acute renal failure: Resolving secondary to obstructive uropathy and ATN hopefully to improve (5) Lactic acidosis: From shock present on admission resolving (6) Transaminitis: [place] to be secondary to shock liver (7) DVT prophylaxis: Heparin for DVT prevention Admission and Anticipated Discharge Date Admission Date: April 01, 2021 Subjective Patient without significant issues regarding sepsis from urinary source found to be E. coli bacteremia. Patient was also found to have a cardiomyopathy of undetermined origin. She is beginning to ambulate about the room. She did have some sinus pauses throughout the evening and recommendations from cardiology is to check a nocturnal oximetry. They continue to feel that she can pursue beta- dewayne therapy and we are instituting a very low-dose GRECIA inhibitor which dose can be escalated throughout her hospital stay.. Review of Systems Review of Systems: Mild distress and fatigue no headache, no visual changes no speech or swallowing issues no chest pain, pressure or palpitations no shortness of breath, cough or wheezes Abdominal pain is improved posadas catheter will be removed no focal joint pain or swelling no back pain, CVA tenderness or radicular pain no bruising, bleeding or rashes no focal signs of weakness or numbness or altered sensation no complaints of anxiety or depression.. Physical Exam Physical Exam: The patient appeared well nourished and normally developed. Vital signs as documented. Head exam is normocephalic atraumatic Neck is without JVD, thyromegaly, or carotid bruits. Lungs are clear to auscultation, no focal loss of breath sounds Cardiac exam, Rhythm is tachycardic but regular.. No murmurs, rubs or gallops. Abdominal exam reveals a minor left-sided tenderness no significant rebound or guarding Extremities are nonedematous and both pedal pulses are present Neurologic exam is alert and oriented, no focal loss of strength or sensation Skin is without bruises or rashes Psychologically is without concerns for anxiety or depression Results & Data Results & Data ([facility]) Vital Signs (Past 12 Hours) Vital Signs Temp Pulse Pulse Resp BP BP Pulse Ox 04/04/21 14:53 99.1 F 74 18 124/75 96 04/04/21 11:31 98.5 F 04/04/21 11:08 100.6 F H 55 L 18 130/78 97 04/04/21 07:15 69 04/04/21 07:10 98.8 F 71 20 120/81 94 PG Care Time/CCT Total # of Minutes Spent Total Time Spent with Patient: Total time spent is greater than 50% in coordination of care (as documented) at patient's floor/unit and/or counseling patient: Coding Level of Care Code 59285 Subseq Hosp Care Lvl 3 Diagnoses Septic shock A41.9; R65.21 Cardiomyopathy I42.9 Elevated troponin R77.8 Acute renal failure N17.9 Acute renal failure type: unspecified Lactic acidosis E87.2 Transaminitis R74.01 DVT prophylaxis Z29.9 (1) Acute renal failure Acute renal failure type: unspecified Qualified Code(s): N17.9 - Acute kidney failure, unspecified
[2021-04-04] MEDS: CIPROFLOXACIN 500 MG TAB PO SCH (18:30)
[2021-04-04] MEDS: ATORVASTATIN 20 MG TAB PO SCH (20:13)
[2021-04-05] MEDS: ASPIRIN 81 MG ECTAB PO SCH (09:03)
[2021-04-05] MEDS: carvediloL 6.25 MG TAB PO SCH (09:03)
[2021-04-05] MEDS: lisinopril 2.5 MG TAB PO SCH (09:04)
[2021-04-05] MEDS: CIPROFLOXACIN 500 MG TAB PO SCH (09:04)
--- NOTE | 2021-04-05 13:18 | Cardiology Progress Note ---
Date of Service April 05, 2021 Assessment & Plan (1) Nonischemic cardiomyopathy: Admission and Anticipated Discharge Date Admission Date: Assessment & Plan (1) Cardiomyopathy: No symptoms of decompensated heart failure or angina. Of carvedilol on low-dose lisinopril. Her blood pressures and renal function are normal and she would likely be a good candidate for 5 mg of lisinopril at the time of discharge. She does occasionally have a ventricular pause on telemetry. Unclear if this is associated with sleeping or sleep apnea. She has no symptoms. I do not think this requires us to reduce or eliminate her beta- dewayne at this time. (2) Elevated troponin: I do not believe this represented an acute coronary syndrome. Likely related to her significant hypotension at the time of presentation (i.e. demand ischemia) (3) MISSAEL (acute kidney injury): Resolved. Doing well with GRECIA-inhibitor. Could increase lisinopril to 5 mg daily. (4) Mitral regurgitation: Mild to moderate. Possibly related to her poor LV function. This can be monitored over time. From a cardiac standpoint I think she would be safe for discharge. She should follow up in my clinic within a month to assess her symptoms, tolerance of medications and plan for additional evaluation. Subjective This morning the patient claims to be feeling well. She has been ambulatory to the bathroom and denies symptoms of dyspnea. She did more extensive ambulation yesterday and did not have limiting dyspnea or chest discomfort. No dizziness, lightheadedness or sense of palpitation. Review of Systems Review of Systems: Per HPI Physical Exam Physical Exam: She is alert and oriented x3. Mood affect appear normal. She answered all questions appropriately. HEENT: Sclerae are anicteric. Pupils are equal and reactive to light and accommodation. Extraocular movements were intact. Neuro: Cranial nerves intact Lungs: Lungs are clear to auscultation bilaterally. There are no rales wheezes or rhonchi. She has normal respiratory effort without use of accessory muscles. There is normal pulmonary excursion. Cardiac: The rhythm was regular. S1 and S2 were normal. There are no murmurs on examination. The PMI was not markedly displaced on palpation. Abdomen: Obese Skin: There are no rashes noted on examination today. Results & Data ([facility]) Vital Signs (Past 12 Hours) Vital Signs Temp Pulse Pulse Resp BP Pulse Ox 04/05/21 10:51 37.1 C 71 18 151/79 H 95 04/05/21 07:45 37.1 C 70 18 151/82 H 94 04/05/21 07:11 69 04/05/21 03:29 37.8 C H 68 18 135/80 96 Diagnostic Findings Echocardiogram performed 04/01/2021: Severely reduced LV systolic function with ejection fraction of 25-30%. Mild RV dilation. Mild to moderate mitral regurgitation. PG Care Time/CCT Total # of Minutes Spent Total Time Spent with Patient: Total time spent is greater than 50% in coordination of care (as documented) at patient's floor/unit and/or counseling patient: Coding Level of Care Code 15147 Subseq Hosp Care Lvl 2 Diagnoses Nonischemic cardiomyopathy I42.8
--- NOTE | 2021-04-05 14:08 | Discharge Summary ---
Date of Service April 05, 2021 Admission HPI Per Admitting Provider Evon Flores is a 65y/o female with no significant past medical history; who presented to the ER for new onset concerns of shortness of breath started this past evening. (She felt like she been in her usual state of health, with the exception of on Tuesday she had decreased appetite and decreased interest in drinking fluids. States that she typically drinks, between 60 to 70 ounces of fluid a day; however, on Tuesday as she just was not feeling up to eating or drinking she had +, this was continued up until Tuesday evening in which she had half a cup of Gatorade. Otherwise feels well feels like she has no acute concerns. States that she feels like her shortness of breath has improved following being started on oxygen in the ED. Additionally notes that sometime during the day Tuesday she started to notice that she was feeling chills, sweats; however had no nausea, vomiting, changes in bowel movements, chest palpitations, chest pain, loss of consciousness, or forgetfulness. Admission Exam Per Admitting Provider Constitutional: WD/WN, vitals as above Eyes: PERRL, conjunctivae normal, anicteric sclerae Respiratory: normal respiratory effort; no respiratory distress, no labored breathing, no retractions and does not use accessory muscles Auscultation: + rhonchi (R>L); no crackles, no rales and no wheezes Cardiovascular: Rate/Rhythm: regular rate and regular rhythm Heart Sounds: no gallop, no murmur and no cardiac rub Vessels: normal peripheral pulses; no JVD Extremities: no edema Gastrointestinal (Abdomen): Inspection/Auscultation: normal bowel sounds; abdomen not distended Percussion/Palpation: abdomen soft and normal to percussion; abdomen nontender and no guarding Musculoskeletal: no cyanosis or clubbing, extremities motor strength 5/5 Skin: + turgor decreased Neurologic: deep tendon reflexes 2+ bilaterally, moves all extremities and awake; not confused and not obtunded Cranial Nerves: PERRL, normal accommodation, EOM intact bilaterally, normal facial strength, tongue midline, normal hearing, able to rotate head bilaterally, able to elevate shoulders bilaterally, no nystagmus and symmetric palate elevation Psychiatric: Orientation: alert and oriented x 3 Lymphatic: no cervical lymphadenopathy Principal Diagnosis Septic shock Acute kidney injury Left obstructing ureterolithiasis E. Coli bacteremia Discharge Exam Constitutional WD/WN, vitals as above + obese Eyes + anicteric sclerae; normal pupil size Respiratory normal respiratory effort, lungs clear to auscultation Cardiovascular RRR, no murmur, no edema Gastrointestinal (Abdomen) Inspection/Auscultation: normal bowel sounds Percussion/Palpation: + abdomen tender (mild left) and abdomen soft; no guarding and abdomen not rigid Skin no rashes, warm and dry Neurologic moves all extremities and awake; not confused Psychiatric A+Ox3, euthymic affect Discharge Data Allergies Allergy/AdvReac Type Severity Reaction Status Date / Time hydrocodone Allergy Unknown Rash Verified 04/13/21 13:18 Consultations 04/01/21 01:47 ED Decision to Admit Stat 04/01/21 03:51 Consult Practice Billing Associate Routine 04/01/21 15:41 Consult Urology Routine 04/02/21 18:07 Consult Cardiology Routine Procedures Performed Operation Date: 04/01/21 10:10 Actual Procedures p Left Ureteral Stent Placement(Left) - Ricky Reynoso MD s Cystoscopy, Left Retrograde Pyelogram(Left) - Ricky Reynoso MD Ordered Studies 04/01/21 FL retrograde includes kub Routine 04/01/21 02:20 CT abd pelvis wo con Urgent IMPRESSION: 1. 1.2 x 0.8 cm left ureteropelvic junction calculus which results in moderate left hydronephrosis. 2. Left-sided nephrolithiasis. 3. Hepatic steatosis. 4. Colonic diverticulosis without evidence for acute diverticulitis. CT chest diagnostic wo con Urgent IMPRESSION: 1. No consolidation to suggest pneumonia. 2. Trace bilateral pleural effusions with associated subsegmental atelectasis. 3. Prominent mediastinal and bilateral hilar lymph nodes. These are indeterminate although probably benign. 04/01/21 04:56 US venous doppler LE BI Urgent IMPRESSION: No evidence of deep venous thrombus within the bilateral lower extremities. 04/01/21 05:26 US point of care ultrasound Stat Hospital Course (1) Septic shock: Evon Flores is a 65 year old female admitted at [facility] from April 01-2020 due to shortness of breath and chills. She was diagnosed with septic shock due to E. coli bacteremia (E. coli blood infection) from urinary source due to obstructing left kidney stone. This was treated initially in the intensive care unit due to need for vasopressors. Additionally she was treated with IV Zosyn and ureteral stent insertion by Dr Reynoso on 04/02. Urology will arrange follow up for definitive stone management and stent removal. She should continue on ciprofloxacin for a further 11 days. On day of discharge she was noted to have intermittent hypoxic episodes overnight. Recommend starting on home O2 2 liters per minute overnight with follow up sleep study to be arranged by your primary care provider once she has fully recovered from this current infection. She was also noted to have a significant cardiomyopathy on transthoracic echocardiogram with mildly elevated troponins (suspect demand-supply mismatch). She was reviewed by cardiology and recommended start on carvedilol and lisinopr il at this time and following up for further evaluation of the cause of this in the office within the next month for further ischemic workup as necessary. (2) Cardiomyopathy: (3) Elevated troponin: (4) Acute renal failure: (5) Lactic acidosis: (6) Transaminitis: (7) DVT prophylaxis: Total Time Total Time Spent Total Time Spent (In Minutes): 40 Discharge Plan Discharge Items Patient Disposition: Home - Self-Care Reason For Visit: SEPSIS Discharge Diagnosis: Septic shock Acute kidney injury Left obstructing ureterolithiasis E. Coli bacteremia Activity: Resume your previous activity Non-emergency contact: Primary Care Provider Call non-emergency contact if: you have any medication questions and your symptoms worsen Follow-up/Referrals: Ricky Reynoso MD [Physician] - (Dr. Reynoso is unavailable.) Manjinder Combs III, MD [Primary Care Provider] - (Dr. Combs is unavailable.) Milly Bhatti PA-C [Physician [employer]] - 04/13/21 11:30 am (Dr. Combs is unavailable. Follow up appointment scheduled with Milly Bhatti PA-C on Tuesday04/13/21 at 11:30 am.) Ton Joyce MD [Physician] - 04/22/21 11:15 am (Follow up appointment scheduled with Dr. Joyce on Tuesday04/22/21 at 11:15 am.) Jeanette Gonzalez CRNP [Nurse Practitioner] - 04/14/21 10:45 am (Dr. Reynoso is unavailable. Follow up appointment scheduled with MEG Carey on Tuesday04/14/21 at 10:45 am. ) Diet: Regular Addtl Attending Provider Instructions: You were admitted at [facility] from April 01-2020 due to shortness of breath and chills. You were diagnosed with septic shock due to E. coli bacteremia (E. coli blood infection) from urinary source due to obstructing left kidney stone. You were treated with antibiotics, vasopressors and ureteral stent insertion by Dr Reynoso on 04/02. Urology will arrange follow up for definitive stone management and stent removal. Please continue on ciprofloxacin for a further 11 days. On day of discharge you were noted to have intermittent hypoxic (low oxygen) episodes overnight. Recommend starting on home O2 2 liters per minute overnight with follow up sleep study to be arranged by your primary care provider once you are over this acute infection. You were also noted to have a significant cardiomyopathy (reduced efficiency of your heart). You were reviewed by cardiology and recommended start on carvedilol and lisinopril at this time and following up for further evaluation of the cause of this in the office within the next month. Kind regards, Nic Puentes Pending Studies at Discharge: Yes Stand-Alone Forms: My [facility], Smoking Cessation Medications and DC Order Prescriptions: New carvedilol 6.25 mg Tablet 6.25 mg PO BID Qty: 60 RF: 0 lisinopril 5 mg tablet 5 mg PO DAILY Qty: 30 RF: 0 Continued atorvastatin 20 mg tablet 20 mg PO HS Qty: 90 RF: 3 aspirin 81 mg Tablet,Chewable 81 mg PO DAILY RF: 0 Discharge Orders: Discharge Order (Routine); Ordered 04/05/21 Ordered By: Nic Lundberg/Other Patient Handouts: Prediabetes, 5 Steps for Eating Healthier, Sepsis, Cardiomyopathy Dc, Eating Heart-Healthy Foods, A1C Admission Data Admit Date/Time: 04/01/21 02:20 Attending Provider: Nic Puentes Admit Provider: Raj Cason Primary Care Provider: Manjinder Combs III Other Providers: Dre Litlte ; Ricky Reynoso ; Ton Joyce Other Interventions: Discharge Summary Assessment (RN) Last Done: 04/05/21 15:00 Coding Level of Care Code D/C Day Management >30 mins Diagnoses Septic shock A41.9; R65.21 Cardiomyopathy I42.9 Elevated troponin R77.8 Acute renal failure N17.9 Acute renal failure type: unspecified Lactic acidosis E87.2 Transaminitis R74.01 DVT prophylaxis Z29.9
== END 2021-04-05 15:29 | disposition home or self-care (01) | DRG 853 ==
LOC: ED 23:55 → SUATTDRO 04-01 02:20 → 1E 04-01 02:20 → 2S 04-02 00:17
DX: I24.8 Other forms of acute ischemic heart disease; Z51.81 Encounter for therapeutic drug level monitoring; R79.1 Abnormal coagulation profile; E86.0 Dehydration; R65.21 Severe sepsis with septic shock; Z88.5 Allergy status to narcotic agent; Z87.891 Personal history of nicotine dependence; K72.00 Acute and subacute hepatic failure without coma; Z79.82 Long term (current) use of aspirin; I34.0 Nonrheumatic mitral (valve) insufficiency; N17.0 Acute kidney failure with tubular necrosis; I42.8 Other cardiomyopathies; E78.5 Hyperlipidemia, unspecified; E78.00 Pure hypercholesterolemia, unspecified; Z20.822 Contact with and (suspected) exposure to COVID-19; A41.51 Sepsis due to Escherichia coli [E. coli]; N13.6 Pyonephrosis; E83.42 Hypomagnesemia; Z79.899 Other long term (current) drug therapy; E87.2 Acidosis